=== PATIENT | male | born 1950 | race Caucasian/White ===

== ENCOUNTER → 2017-12-21 | Outpatient (CLI) | payer MEDICARE, SELFPAY | END | disposition home or self-care (01) | LOC: EN 07:43 | PROVIDERS: Family Provider Family Medicine; PCP Family Medicine; Visit Provider Surgery | DX: Z00.00 Encounter for general adult medical examination without abnormal findings (principal) ==

== ENCOUNTER → 2018-08-11 09:29 | Outpatient (CLI) | payer MEDICARE, SELFPAY ==
[2018-08-11 10:59] LABS: Anion Gap 11 (5-15); BUN 29 mg/dL (7-18); BUN/Creat Ratio 22.3 RATIO (10-20); Calcium,Total 8.6 mg/dL (8.5-10.1); Chloride 108 mmol/L (98-107); Cholesterol 142 mg/dL (200); EST Glomerular Filtration Rate 58 mL/min (>60); Est Glom Filt Rate - Afr Amer 71 mL/min (>60); Glucose 91 mg/dL (74-106); High Density Lipoprotein 56 mg/dL; Potassium 4.3 mmol/L (3.5-5.1); Sodium Level 143 mmol/L (136-145); Triglycerides 61 mg/dL; Very Low Density Lipoprotein 12 mg/dL (5-40)
== END ==
PROVIDERS: Family Provider Family Medicine; PCP Family Medicine; Referring Provider Family Medicine; Visit Provider Family Medicine
DX: Z13.220 Encounter for screening for lipoid disorders (principal); Z13.1 Encounter for screening for diabetes mellitus; Z12.5 Encounter for screening for malignant neoplasm of prostate
CPT/HCPCS: 36415; 80048; 80061; 84153; G0103

== ENCOUNTER → 2019-09-29 08:54 | Outpatient (CLI) | payer MEDICARE, SELFPAY ==
[2019-09-29 10:37] LABS: Anion Gap 5 (5-15); BUN 23 mg/dL (7-18); BUN/Creat Ratio 17.7 RATIO (10-20); Calcium,Total 8.2 mg/dL (8.5-10.1); Chloride 109 mmol/L (98-107); EST Glomerular Filtration Rate 58 mL/min (>60); Est Glom Filt Rate - Afr Amer 70 mL/min (>60); Glucose 97 mg/dL (74-106); Potassium 4.2 mmol/L (3.5-5.1); Sodium Level 141 mmol/L (136-145)
== END ==
PROVIDERS: PCP Family Medicine; Visit Provider Family Medicine
DX: I10 Essential (primary) hypertension (principal)
CPT/HCPCS: 36415; 80048

== ENCOUNTER 2020-11-17 15:46 | Inpatient (IN) | payer MEDICARE, SELFPAY ==
[2020-11-17] VITALS (7 sets, daily range): BP systolic 165–188; BP diastolic 98–109; PULSE 81–98; RESP 16–20; TEMP 36.4–36.8; O2SAT 95–98; BMI 32.0; BMI 31.4; BMI 31.5
--- NOTE | 2020-11-17 16:04 | CT_ITS ---
STUDY: CT ABDOMEN AND PELVIS WITH CONTRAST REASON FOR EXAM: Male, 70 years old. ABd painn -- IV PO Contrast RADIATION DOSAGE (If Supplied By Facility): CTDIvol = ( 17.51 ) mGy, DLP = ( 1224.71 ) mGycm TECHNIQUE: Transaxial images were obtained from the dome of the diaphragm to the symphysis pubis without oral contrast. Oral and amp;amp; IV Breeza Neutral and amp;amp; 100mL Isovue-370 was administered. Sagittal and coronal images were reconstructed. Individualized dose optimization techniques were used for this CT. COMPARISON: None. FINDINGS: Minimal dependent atelectasis in the right lower lobe. A 4.2 x 2.3 cm pericardial cyst to the right of the heart. Markedly distended gallbladder with intra and extrahepatic biliary dilatation. The possibility of a mass in the head of the pancreas cannot be excluded. No focal hepatic lesion on this single phase study. Multiple ill-defined masses in the spleen measuring up to 3.4 x 2.9 cm on image #30 axial series. Metastases are suspected. Calcified splenic granulomas. Unremarkable adrenals and bilateral kidneys. No CT evidence of acute appendicitis. Multiple fluid-filled and somewhat dilated small bowel loops down to the level of right lower abdomen where there is a small bowel loop containing fecaloid material. Bowel loops distal to this area are decompressed (image #97 axial series). Findings residual air in the colon. Findings compatible with partial small bowel obstruction. Distal colonic diverticulosis. No acute diverticulitis. No free air. Trace perisplenic ascites.. No adenopathy. Mild vascular calcification. Sections through the pelvis demonstrate an enlarged prostate gland. Grossly unremarkable urinary bladder. Fat-containing right inguinal hernia. Multilevel thoracolumbar spondylosis. Mild to moderate levoscoliosis of the lumbar spine. CT/Abdomen/Pelvis WITH Contrast IMPRESSION: Marked gallbladder distention with intra and extra hepatic biliary dilatation. Dedicated pancreatic MRI or CT scan is recommended to rule out the possibility of pancreatic adenocarcinoma in the head of the pancreas. Multiple ill-defined lesions in the spleen, highly suspicious for metastases. Trace perisplenic ascites. Partial small bowel obstruction with the transition point in the right lower abdomen. The underlying etiology is likely adhesions. Distal colonic diverticulosis. No acute diverticulitis. Electronically Signed: Jonathan Grimes MD at 18:28 EDT Tel , Service support ,
--- NOTE | 2020-11-17 16:04 | EKG12_ITS ---
Test Reason : Blood Pressure : / mmHG Vent. Rate : 090 BPM Atrial Rate : 090 BPM P-R Int : 176 ms QRS Dur : 082 ms QT Int : 380 ms P-R-T Axes : 055 -29 043 degrees QTc Int : 464 ms Normal sinus rhythm Normal ECG Confirmed by LASHAY LAWRENCE, NITZA ([id number]), research editor THIAGO PURVIS ([id number]) on 11/19/2020 8:38:06 AM Referred By: CAYLA Confirmed By:ROSS METZ MD
[2020-11-17] MEDS: 0.9% Normal Saline 1,000 ML 1000 ML IV (16:14)
[2020-11-17] MEDS: Morphine 4 MG/ML Syringe IV ×3 (16:14→21:38)
[2020-11-17] MEDS: Ondansetron 4 MG/2 ML Vial IV (16:15)
[2020-11-17 16:18] LABS: Absolute Lymphocyte Count 0.29 X10^3/uL (0.83-4.51); Absolute Neutrophil Count 16.1 X10^3/uL (2.0-7.7); Basophil# 0.02 X10^3/uL; Basophil% 0.1 % (0-1); Hematocrit 45.9 % (40-54); Lymphocyte # 0.29 X10^3/ul (0.83-4.51); Lymphocyte % 1.7 % (19-41); Mean Corp Hgb Conc 32.7 g/dL (32-36); Mean Corpuscular Volume 85.6 fL (80-94); Mean Platelet Vol. 10.2 fl (6.2-12.0); Monocyte# 0.33 X10^3/uL; NRBC Flagged by Analyzer 0 % (0-5); Neutrophil # 16.06 X10^3/uL (2.7-7.7); POSITIVE DIFFERENTIAL YES; Platelet Count 214 K/mm3 (150-450); RBC Distribution Width CV 14.2 % (11.6-14.6); RBC Distribution Width SD 44.3 fl (35.1-43.9); Red Blood Count 5.36 M/mm3 (4.6-6.2); White Blood Count 16.7 K/mm3 (4.4-11.0)
[2020-11-17 16:21] LABS: Differential Indicated SCAN CRITERIA MET
[2020-11-17 16:35] LABS: Differential Comment SCANNED
[2020-11-17 16:37] LABS: ALB/GLOB Ratio 0.8 RATIO (0.9-2.4); AST(SGOT) 17 U/L (15-37); Alanine Aminotransfer ALT/SGPT 20 U/L (16-61); Albumin, Serum 3.7 g/dL (3.2-5.0); Alkaline Phosphatase 134 U/L (45-117); Anion Gap 7 (5-15); BUN 22 mg/dL (7-18); BUN/Creat Ratio 17.2 RATIO (10-20); Calcium,Total 9.2 mg/dL (8.5-10.1); Chloride 101 mmol/L (98-107); Creatinine, Serum 1.28 mg/dL (0.70-1.30); EST Glomerular Filtration Rate 59 mL/min (>60); Est Glom Filt Rate - Afr Amer 71 mL/min (>60); Estimated Creatinine Clearance 58.94 ml/min; Globulin 4.7 g/dL (2.2-4.2); Glucose 161 mg/dL (74-106); Lipase 111 U/L (73-393); Potassium 3.8 mmol/L (3.5-5.1); Protein, Total 8.4 g/dL (6.4-8.2); Sodium Level 135 mmol/L (136-145)
--- NOTE | 2020-11-17 17:38 | ED.DCSUM_ITS ---
- ER Visit Summary Date of Service: 11/17/20 Chief Complaint: Abdominal pain History of Present Illness: The patient is a [address] Baires. He reports his abdominal pain began yesterday. Is gradually gotten worse. It is a cramping pain that is 8 out of 10 at worst and 3-10 currently. Is worsened by movement. It is Minimal relief with remaining still. Is taken antacids without relief. Reports has been nausea and vomited 3 times. No blood in his emesis. His last bowel was yesterday. He reports he is not passing flatus today. He denies any dysuria or frequency. Physical Examination: Vitals: Stable. Afebrile. General: Well-nourished and well-developed. Head: Normocephalic atraumatic. Neck: Supple, no lymphadenopathy. No JVD. Nontender. Cardiovascular: Regular rate and rhythm. No murmurs. Respiratory: No respiratory distress. Clear to auscultation bilaterally. Abdominal: Soft, mild epigastric and moderate suprapubic and left lower quadrant tenderness palpation. Abdomen is distended with hypoactive bowel sounds. No guarding, rebound, or peritoneal signs. Back: Nontender. Extremities: Nontender, no edema. Skin: Normal color, no rash. Neurologic: Alert and oriented ?3. Cranial nerves II through XII are intact. Normal strength and sensation. Psych: Normal affect. Test Results: EKG is sinus at [address] changes. Troponin is negative. LFTs show total protein of 8.4 and globin of 4.7. Alk phos is 134. Lipase is 111. Chem-7 shows sodium 135, glucose 161, BUN 22. CBC shows a white count of 16.7 with 96 segmented leach and 2 lymphocytes. COVID-19 is negative. Clinical Impression(s) from Imaging Studies Abdomen/Pelvis CT 11/17/20 16:04 IMPRESSION: Marked gallbladder distention with intra and extra hepatic biliary dilatation. Dedicated pancreatic MRI or CT scan is recommended to rule out the possibility of pancreatic adenocarcinoma in the head of the pancreas. Multiple ill-defined lesions in the spleen, highly suspicious for metastases. Trace perisplenic ascites. Partial small bowel obstruction with the transition point in the right lower abdomen. The underlying etiology is likely adhesions. Distal colonic diverticulosis. No acute diverticulitis. Electronically Signed: Jonathan Grimes MD at 18:28 EDT Tel , Service support , Emergency Department Course and Treatment: Patient was given morphine and Zofran IV. He is resting more comfortably. I had a discussion with patient about the possibility of an NG tube. His pain is improved. His nausea is resolved. He refused an NG tube. Treatment Plan: The patient was discussed with Dr. Doherty and insert Dr. Lisa. He will be admitted to the hospital with a plan to do a pancreatic MRI tomorrow. Disposition: Admitted in improved condition. Impression: 1. Partial small bowel obstruction. 2. Possible pancreatic mass. This note was generated with [employer] dictation software. It may contain incorrect words, spelling, and punctuation that were not noted in review of the chart prior to signing ED Disposition - Plan for ED Patient: Referrals: Lonnie De Anda MD [Primary Care Provider] -
[2020-11-17 18:24] LABS: Bacteria 0 SEEN /hpf (None Seen); Mucous, Urine 0 SEEN /hpf (<or=2+); Red Blood Cells-Urine 0 SEEN /hpf (0-5); Squamous Epithelial Cells - UA 0 SEEN /hpf (0-5); White Blood Cells 0 SEEN /hpf (0-5)
[2020-11-17 18:25] LABS: Color, Urine Straw (Yellow); Glucose, Dipstick Normal (Normal); Ketone-Dipstick 5 mg/dl (Negative); Leukocyte Esterase-Dipstick Negative /ul (Negative); Nitrite-Dipstick Negative (Negative); Occult Blood-Urine Negative /ul (Negative); Protein-Dipstick 15 mg/dl (Negative); Specific Gravity, Urine 1.005 (1.002-1.030); Urine Bilirubin Dipstick Negative (Negative); Urine Clarity Clear (Clear); Urine Urobilinogen Normal (Normal)
--- NOTE | 2020-11-17 19:26 | PCM.HP.STD ---
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 The pain radiates to his bilateral flanks. The pain worsens with eating. The pain improves with not eating. Originally his pain was 8 on a scale of 1-10 but with taking antacids; and Pepto-Bismol his pain reduced to a 3 by the time he got to the emergency department. Also at the emergency department morphine helped with his pain. Associated with his symptoms is nausea and vomiting. Last time his bowels moved was on the morning of the day of presentation. At the time of examination patient was not passing flatus. Past Medical History Medical History: Medical History (Last Reviewed 11/17/20 @ 20:[address] Smith Cook MD) Essential tremor G25.0 Allergies Penicillins [PCN] Allergy (Verified 11/17/20 15:47) Itching Home Medications: Ambulatory Orders Medication Instructions Recorded Topiramate [Topamax] 50 mg PO PRN PRN 04/18/15 Meloxicam [Mobic] 7.5 mg PO DAILY 06/12/16 Primidone [Mysoline] 100 mg PO DAILY 06/12/16 Cialis 11/17/20 Surgical History: herniorrhaphy, total knee arthroplasty, - - Bilateral tibia fibula fracture repair Smoking Status: Former smoker - *Family History Maternal History Items: - - Patient mother is alive and is 93-year-old. Patient's mother had gallbladder surgery; hysterectomy and lens implant. Paternal History Items: - - Patient does not know paternal medical history Review of Systems Constitutional: Denies: Chills, Fever, Weight Change HEENT: Denies: Head Aches, Sinus Congestion, Sinus Drainage Cardiovascular: Denies: Chest Pain, Palpitations Respiratory: Denies: Cough, Shortness of breath at rest, Sputum production Gastrointestinal: Reports: Abdominal Pain, Nausea, Vomiting Genitourinary: Denies: Dysuria Musculoskeletal: Denies: Joint Pain, Joint Tenderness Skin: Denies: Rash, Wounds Neurological: Denies: Numbness, Tingling, Focal weakness Psychiatric: Denies: Anxiety, Depression, Homicidal Ideations, Suicidal Ideations Hematologic/ Lymphatic: Denies: Easy Bruising, Easy Bleeding VTE Information - Inpt Only VTE Present on Admission: No VTE Mechan Device Prophylaxis: SCD's VTE Pharm Prophylaxis ordered?: No Patient Problems: Active and Suspected Problems (Last Reviewed 11/17/20 @ 20:[address] Smith Cook MD) SBO (small bowel obstruction) (Acute) Pancreatic mass (Acute) - Physical Exam Vitals/I&O's: Vital Signs Temp Pulse Resp BP Pulse Ox 97.6 F L 89 16 186/104 H 98 11/17/20 15:47 11/17/20 18:47 11/17/20 18:47 11/17/20 18:47 11/17/20 17:46 Oxygen Delivery Method Room Air Weight: 107.1 kg Body Mass Index (BMI) 32.0 Intake and Output for Last 24 Hours 11/15/20 11/16/20 11/17/20 23:59 23:59 23:59 Intake Total 1000 / 1000 Balance 1000 / 1000 General: Alert, Oriented x3, Cooperative HEENT: Atraumatic, PERRLA, EOMI, Normocephalic Neck: Supple, No JVD, Negative Carotid Bruits Lungs: Clear to auscultation, Normal air movement Cardiovascular: Regular rate, Normal S1, Normal S2, No murmurs Abdomen: Bowel Sounds Present, Soft, Tender - Mildly tender at lower abdomen. Extremities: No edema, Capillary Refill Less than 3 Seconds Skin: No rashes, No breakdown Musculoskeletal: No Tenderness to Palpation of Joints or Extremities Neurological: Cranial nerves II-XII grossly intact Psych/Mental Status: Normal Affect, Appropriate Microbiology Past 72 Hours 11/17/20 17:18 Nasal Secretion SARS-CoV-2 Antigen (Rapid) - Final Laboratory Results 11/17/20 16:10: WBC 16.7 H, RBC 5.36, Hgb 15.0, Hct 45.9, MCV 85.6, MCH 28.0, MCHC 32.7, RDW Std Deviation 44.3 H, RDW Coeff of Bettina 14.2, Plt Count 214, MPV 10.2, Immature Gran % (Auto) 0.200, Neut % (Auto) 96.0 H, Lymph % (Auto) 1.7 L, Vance % (Auto) 2.0, Eos % (Auto) 0.0, Baso % (Auto) 0.1, Absolute Neuts (auto) 16.1 H, Absolute Lymphs (auto) 0.29 L, Nucleated RBC % 0, Differential Comment SCANNED 11/17/20 16:10: Sodium 135 L, Potassium 3.8, Chloride 101, Carbon Dioxide 27.0, Anion Gap 7, BUN 22 H, Creatinine 1.28, Estim Creat Clear Calc 58.94, Est GFR (MDRD) Af Amer 71, Est GFR (MDRD) Non-Af 59 L, BUN/Creatinine Ratio 17.2, Glucose 161 H, Calcium 9.2, Total Bilirubin 0.90, AST 17, ALT 20, Alkaline Phosphatase 134 H, Troponin I < 0.015, Total Protein 8.4 H, Albumin 3.7, Globulin 4.7 H, Albumin/Globulin Ratio 0.8 L, Lipase 111 11/17/20 18:20: Urine Color Straw, Urine Clarity Clear, Urine pH 7.0, Ur Specific [place] 1.005, Urine Protein 15 H, Urine Glucose (UA) Normal, Urine Ketones 5 H, Urine Occult Blood Negative, Urine Nitrite Negative, Urine Bilirubin Negative, Urine Urobilinogen Normal, Ur Leukocyte Esterase Negative, Urine RBC 0 SEEN, Urine WBC 0 SEEN, Ur Squamous Epith Cells 0 SEEN, Urine Bacteria 0 SEEN, Urine Mucus 0 SEEN Assessment/Plan All Active Problems (Last Reviewed 11/17/20 @ 20:[address] 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 Partial small bowel obstruction Abdomen pelvis CT showed partial small bowel obstruction with transition point in the right lower abdomen. Will keep patient n.p.o. Supportive treatment with IV fluids; as needed morphine; and as needed antiemetics. General surgery consult Trend CBC and BMP Pancreatic mass Radiologist impression of abdomen and pelvis CT: Abdomen and pelvis CT with marked gallbladder distention with intra and extra hepatic biliary dilatation. Multiple ill-defined lesions in the spleen, highly suspicion for mental status. Radiologist recommended dedicated pancreatic MRI or CT scan. Per emergent department doctor general surgery recommended MRI. Actual abdomen and pelvic CT was independently interpreted. I agree with radiologist interpretation. Case discussed general surgery. Dedicated pancreatic MRI ordered. Essential tremors On primidone and Topamax. Reportedly he does not take these medications. Essential tremors however affect his writing. In lieu of taking these medications he makes people write for him. Hold primidone and topiramate. DVT prophylaxis SCD. Patient is not a candidate of chemical chemoprophylaxis at this time. Inpatient E&M: [id number] Init Hosp L3
[2020-11-17] MEDS: Famotidine 200 MG/20 ML MDV 20 MG in 0.9% Normal Saline (Pres. free 8 ML 300 MG IV (22:13)
[2020-11-17] MEDS: hydrALAZINE 20 MG/ML Vial 5 MG IV (22:17)
[2020-11-18] VITALS (9 sets, daily range): BP systolic 146–185; BP diastolic 86–96; PULSE 67–76; RESP 16–18; TEMP 36.6–36.8; O2SAT 94–96
[2020-11-18] MEDS: Ketorolac 15 MG/ML Vial IV (00:41)
[2020-11-18] MEDS: 0.9% Normal Saline 1,000 ML 75 ML IV ×2 (00:43→14:31)
[2020-11-18] MEDS: Ondansetron 4 MG/2 ML Vial IV ×3 (00:46→17:30)
[2020-11-18] MEDS: Morphine 4 MG/ML Syringe IV ×6 (04:44→20:36)
--- NOTE | 2020-11-18 06:51 | CON.PCM_ITS ---
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 The pain radiates to his bilateral flanks. The pain worsens with eating. The pain improves with not eating. Originally his pain was 8 on a scale of 1-10 but with taking antacids; and Pepto-Bismol his pain reduced to a 3 by the time he got to the emergency department. Also at the emergency department morphine helped with his pain. Associated with his symptoms is nausea and vomiting. Last time his bowels moved was on the morning of the day of presentation. At the time of examination patient was not passing flatus. Past Medical History Medical History: Medical History (Last Reviewed 11/18/20 @ 06:[address] Adolfo Doherty MD) Essential tremor G25.0 Allergies Penicillins [PCN] Allergy (Verified 11/17/20 15:47) Itching Home Medications: Ambulatory Orders Medication Instructions Recorded Topiramate [Topamax] 50 mg PO PRN PRN 04/18/15 Meloxicam [Mobic] 7.5 mg PO DAILY PRN 06/12/16 Primidone [Mysoline] 100 mg PO DAILY PRN 06/12/16 Cialis 25 mg PO 11/17/20 Surgical History: herniorrhaphy, total knee arthroplasty, - - Bilateral tibia fibula fracture repair Smoking Status: Former smoker Tobacco Use: Cigarettes - *Family History Maternal History Items: - - Patient mother is alive and is 93-year-old. Patient's mother had gallbladder surgery; hysterectomy and lens implant. Paternal History Items: - - Patient does not know paternal medical history Review of Systems Constitutional: Reports: Anorexia Cardiovascular: Denies: Chest Pain, Chest Pressure, Chest Tightness, Palpitations Respiratory: Denies: Cough, Hemoptysis, Shortness of breath at rest, Shortness of breath upon exertion, Wheezing Gastrointestinal: Reports: Abdominal Pain Patient Problems: Active and Suspected Problems (Last Reviewed 11/17/20 @ 20:[address] Smith Cook MD) SBO (small bowel obstruction) (Acute) Pancreatic mass (Acute) - Physical Exam Vitals/I&O's: Vital Signs Temp Pulse Resp BP Pulse Ox 98.2 F 76 16 146/87 H 95 11/18/20 02:49 11/18/20 02:49 11/18/20 02:49 11/18/20 02:49 11/18/20 02:49 Oxygen Delivery Method Room Air Weight: 231 lb 14.821 oz Body Mass Index (BMI) 31.4 Intake and Output for Last 24 Hours 11/16/20 11/17/20 11/18/20 23:59 23:59 23:59 Intake Total 1010 / 1010 Balance 1010 / 1010 General: Alert, Oriented x3 HEENT: Normocephalic - No scleral icterus is identified Cardiovascular: Regular rate, Regular Rhythm, No murmurs Abdomen: Soft - Minimal tenderness to palpation. Few bowel sounds are heard. Microbiology Past 72 Hours 11/17/20 17:18 Nasal Secretion SARS-CoV-2 Antigen (Rapid) - Final Laboratory Results 11/17/20 16:10: WBC 16.7 H, RBC 5.36, Hgb 15.0, Hct 45.9, MCV 85.6, MCH 28.0, MCHC 32.7, RDW Std Deviation 44.3 H, RDW Coeff of Bettina 14.2, Plt Count 214, MPV 10.2, Immature Gran % (Auto) 0.200, Neut % (Auto) 96.0 H, Lymph % (Auto) 1.7 L, [place] % (Auto) 2.0, Eos % (Auto) 0.0, Baso % (Auto) 0.1, Absolute Neuts (auto) 16.1 H, Absolute Lymphs (auto) 0.29 L, Nucleated RBC % 0, Differential Comment SCANNED 11/17/20 16:10: Sodium 135 L, Potassium 3.8, Chloride 101, Carbon Dioxide 27.0, Anion Gap 7, BUN 22 H, Creatinine 1.28, Estim Creat Clear Calc 58.94, Est GFR (MDRD) Af Amer 71, Est GFR (MDRD) Non-Af 59 L, BUN/Creatinine Ratio 17.2, Glucose 161 H, Calcium 9.2, Total Bilirubin 0.90, AST 17, ALT 20, Alkaline Phosphatase 134 H, Troponin I < 0.015, Total Protein 8.4 H, Albumin 3.7, Globul in 4.7 H, Albumin/Globulin Ratio 0.8 L, Lipase 111 11/17/20 18:20: Urine Color Straw, Urine Clarity Clear, Urine pH 7.0, Ur Specific [place] 1.005, Urine Protein 15 H, Urine Glucose (UA) Normal, Urine Ketones 5 H, Urine Occult Blood Negative, Urine Nitrite Negative, Urine Bilirubin Negative, Urine Urobilinogen Normal, Ur Leukocyte Esterase Negative, Urine RBC 0 SEEN, Urine WBC 0 SEEN, Ur Squamous Epith Cells 0 SEEN, Urine Bacteria 0 SEEN, Urine Mucus 0 SEEN Current Medications Hydralazine HCl (Hydralazine 20 Mg/Ml Vial) 5 mg IV Q4H PRN PRN PRN Reason: SBP > 160 Last Admin: 11/17/20 22:17 Dose: 5 mg Documented by: Sodium Chloride () 1,000 mls @ 75 mls/hr IV .[id number] CRISTIANE Last Admin: 11/18/20 00:43 Dose: 75 mls/hr Documented by: Famotidine 20 mg/ Sodium (Chloride) 10 mls @ 300 mls/hr IV Q12 CRISTIANE Last Infusion: 11/17/20 22:15 Dose: Infused Documented by: Morphine Sulfate (Morphine 4 Mg/Ml Syringe) 4 mg IV Q3H PRN PRN PRN Reason: Pain Score 6-10 Last Admin: 11/18/20 04:44 Dose: 4 mg Documented by: Ondansetron HCl (Ondansetron 4 Mg/2 Ml Vial) 4 mg IV Q8H PRN PRN PRN Reason: NAUSEA/VOMITING Last Admin: 11/18/20 00:46 Dose: 4 mg Documented by: Sodium Chloride (0.9% Saline Lock 10 Ml Syringe) 10 - 40 ml IV UD PRN PRN Reason: SALINE FLUSH Assessment/Plan All Active Problems (Last Reviewed 11/17/20 @ 20:[address] Smith Cook MD) SBO (small bowel obstruction) (Acute) Pancreatic mass (Acute) Patient will be getting an MRI of the pancreas today. I am going to consult Dr. Nino to get his opinion on the need for a ERCP. He does not have a surgical abdomen at this time and I do not think he needs an operation.
[2020-11-18 07:04] LABS: Absolute Lymphocyte Count 1.05 X10^3/uL (0.83-4.51); Absolute Neutrophil Count 10.1 X10^3/uL (2.0-7.7); Basophil# 0.03 X10^3/uL; Basophil% 0.2 % (0-1); Eosinophil# 0.05 X10^3/uL; Eosinophils% 0.4 % (0-5); Hematocrit 41.3 % (40-54); Hemoglobin 13.1 g/dL (13.0-16.5); Lymphocyte # 1.05 X10^3/ul (0.83-4.51); Lymphocyte % 8.6 % (19-41); Mean Corp Hgb Conc 31.7 g/dL (32-36); Mean Corpuscular Hgb 28.1 pg (27.0-32.0); Mean Corpuscular Volume 88.6 fL (80-94); Mean Platelet Vol. 10.3 fl (6.2-12.0); Monocyte# 0.88 X10^3/uL; Monocyte% 7.2 % (0-10); NRBC Flagged by Analyzer 0 % (0-5); Neutrophil # 10.12 X10^3/uL (2.7-7.7); Neutrophil % 83.3 % (47-70); Platelet Count 168 K/mm3 (150-450); RBC Distribution Width CV 14.3 % (11.6-14.6); RBC Distribution Width SD 45.8 fl (35.1-43.9); Red Blood Count 4.66 M/mm3 (4.6-6.2); White Blood Count 12.2 K/mm3 (4.4-11.0)
[2020-11-18] MEDS: 0.9% Saline Lock 10 ML Syringe IV ×6 (07:50→20:36)
[2020-11-18 07:51] LABS: ALB/GLOB Ratio 0.8 RATIO (0.9-2.4); AST(SGOT) 41 U/L (15-37); Alanine Aminotransfer ALT/SGPT 32 U/L (16-61); Albumin, Serum 3.1 g/dL (3.2-5.0); Alkaline Phosphatase 111 U/L (45-117); Anion Gap 3 (5-15); BUN 22 mg/dL (7-18); BUN/Creat Ratio 20.2 RATIO (10-20); Calcium,Total 8.7 mg/dL (8.5-10.1); Chloride 105 mmol/L (98-107); Creatinine, Serum 1.09 mg/dL (0.70-1.30); EST Glomerular Filtration Rate 71 mL/min (>60); Est Glom Filt Rate - Afr Amer 86 mL/min (>60); Estimated Creatinine Clearance 69.22 ml/min; Globulin 3.7 g/dL (2.2-4.2); Glucose 98 mg/dL (74-106); Potassium 4.6 mmol/L (3.5-5.1); Protein, Total 6.8 g/dL (6.4-8.2); Sodium Level 137 mmol/L (136-145)
--- NOTE | 2020-11-18 08:00 | MRI_ITS ---
STUDY: MRI ABDOMEN WITH AND WITHOUT CONTRAST REASON FOR EXAM: Male, 70 years old. PANCREATIC CANCER -- Dedicated pancreatic MRI for pancreatic adenoca TECHNIQUE: Standardized fat and water weighted pulse sequences were obtained in all 3 orthogonal planes post contrast administration. IV Yes YES was administered for the contrast portion of the examination. COMPARISON: None. FINDINGS: The visualized lung bases are unremarkable. 3 cm cyst in the right epicardial fat pad. Normal liver. There are multiple gallstones. Gallbladder hydrops with a cross-sectional diameter 7 cm. Mild intrahepatic biliary ductal dilatation particularly in the left lobe. Multiple peripherally enhancing masses of the spleen which fill-in over time worrisome for metastatic disease. The largest lesion measures 3.5 cm in the superior aspect of the spleen. Some free fluid surrounding the spleen. Normal pancreas. Normal bilateral adrenal glands. Normal right kidney. Normal left kidney. There is a small hiatal hernia. Diverticulum of the second portion the duodenum. Normal colon. There is non-visualization of the appendix. Normal abdominal aorta. Normal inferior vena cava. Normal retroperitoneum. Normal abdominal wall. Normal osseous structures. MRI/MRI Abd WITH and W/O Contrast IMPRESSION: 1. Cholelithiasis with gallbladder hydrops. 2. Mild intrahepatic biliary ductal dilatation particularly in the left lobe. ERCP may be useful. 3. No MR evidence of pancreatic mass. 4. Multiple peripherally enhancing lesions the spleen worrisome for metastatic disease. 5. Diverticulum of second portion the duodenum. Electronically Signed: Vinnie Washington MD at 12:55 EDT Tel , Service support ,
--- NOTE | 2020-11-18 08:35 | PN_ITS ---
Patient Problems: Active and Suspected Problems (Last Reviewed 11/18/20 @ 06:[address] Adolfo Doherty MD) SBO (small bowel obstruction) (Acute) Pancreatic mass (Acute) Reason for Visit: Abdominal pain Small bowel obstruction Subjective: Patient is a 70-year-old gentleman admitted with abdominal cramping imaging studies demonstrated small bowel obstruction. Patient was also found to have Marked gallbladder distention with intra and extra hepatic biliary dilatation in addition to Multiple ill-defined lesions in the spleen, highly suspicious for metastases. Admitted to regular nursing floor with consultation placed to general surgery Objective: GENERAL: cooperative HEENT: Atraumatic; EYES; Anicteric, Normal Conjunctiva NECK; supple, normal thyroid, RESPIRATORY: Diminished to auscultation CARDIOVASCULAR: Regular S1 S2, GI: soft, bowel sounds not appreciated : No Renal angle tenderness; EXTREMITIES: No edema, no clubbing, MUSCULOSKELETAL: no muscle waisting NEURO: Awake; no lateralizing signs. SKIN: No Rash PSYCH; Flat affect Vitals/I&O's: Vital Signs Temp Pulse Resp BP Pulse Ox 97.9 F 73 18 166/96 H 94 11/18/20 07:54 11/18/20 07:54 11/18/20 07:54 11/18/20 07:54 11/18/20 07:54 Oxygen Delivery Method Room Air Weight: 105.2 kg Body Mass Index (BMI) 31.4 Intake and Output for Last 24 Hours 11/16/20 11/17/20 11/18/20 23:59 23:59 23:59 Intake Total 1010 / 1010 Balance 1010 / 1010 Microbiology Past 72 Hours 11/17/20 17:18 Nasal Secretion SARS-CoV-2 Antigen (Rapid) - Final Laboratory Results 11/17/20 16:10: WBC 16.7 H, RBC 5.36, Hgb 15.0, Hct 45.9, MCV 85.6, MCH 28.0, MCHC 32.7, RDW Std Deviation 44.3 H, RDW Coeff of Bettina 14.2, Plt Count 214, MPV 10.2, Immature Gran % (Auto) 0.200, Neut % (Auto) 96.0 H, Lymph % (Auto) 1.7 L, [place] % (Auto) 2.0, Eos % (Auto) 0.0, Baso % (Auto) 0.1, Absolute Neuts (auto) 16.1 H, Absolute Lymphs (auto) 0.29 L, Nucleated RBC % 0, Differential Comment SCANNED 11/17/20 16:10: Sodium 135 L, Potassium 3.8, Chloride 101, Carbon Dioxide 27.0, Anion Gap 7, BUN 22 H, Creatinine 1.28, Estim Creat Clear Calc 58.94, Est GFR (MDRD) Af Amer 71, Est GFR (MDRD) Non-Af 59 L, BUN/Creatinine Ratio 17.2, Gluc ose 161 H, Calcium 9.2, Total Bilirubin 0.90, AST 17, ALT 20, Alkaline Phosphatase 134 H, Troponin I < 0.015, Total Protein 8.4 H, Albumin 3.7, Globulin 4.7 H, Albumin/Globulin Ratio 0.8 L, Lipase 111 11/17/20 18:20: Urine Color Straw, Urine Clarity Clear, Urine pH 7.0, Ur Specific [place] 1.005, Urine Protein 15 H, Urine Glucose (UA) Normal, Urine Ketones 5 H, Urine Occult Blood Negative, Urine Nitrite Negative, Urine Bilirubin Negative, Urine Urobilinogen Normal, Ur Leukocyte Esterase Negative, Urine RBC 0 SEEN, Urine WBC 0 SEEN, Ur Squamous Epith Cells 0 SEEN, Urine Bacteria 0 SEEN, Urine Mucus 0 SEEN 11/18/20 06:35: WBC 12.2 H, RBC 4.66, Hgb 13.1, Hct 41.3, MCV 88.6, MCH 28.1, MCHC 31.7 L, RDW Std Deviation 45.8 H, RDW Coeff of Bettina 14.3, Plt Count 168, MPV 10.3, Immature Gran % (Auto) 0.300, Neut % (Auto) 83.3 H, Lymph % (Auto) 8.6 L, [place] % (Auto) 7.2, Eos % (Auto) 0.4, Baso % (Auto) 0.2, Absolute Neuts (auto) 10.1 H, Absolute Lymphs (auto) 1.05, Nucleated RBC % 0 11/18/20 06:35: Sodium 137, Potassium 4.6, Chloride 105, Carbon Dioxide 29.0, Anion Gap 3 L, BUN 22 H, Creatinine 1.09, Estim Creat Clear Calc 69.22, Est GFR (MDRD) Af Amer 86, Est GFR (MDRD) Non-Af 71, BUN/Creatinine Ratio 20.2 H, Glucose 98, Calcium 8.7, Total Bilirubin 0.90, AST 41 H, ALT 32, Alkaline Phosphatase 111, Total Protein 6.8, Albumin 3.1 L, Globulin 3.7, Albumin/Globulin Ratio 0.8 L Current Medications Hydralazine HCl (Hydralazine 20 Mg/Ml Vial) 5 mg IV Q4H PRN PRN PRN Reason: SBP > 160 Last Admin: 11/17/20 22:17 Dose: 5 mg Documented by: Sodium Chloride () 1,000 mls @ 75 mls/hr IV .[id number] [facility] Last Admin: 11/18/20 00:43 Dose: 75 mls/hr Documented by: Famotidine 20 mg/ Sodium (Chloride) 10 mls @ 300 mls/hr IV Q12 [facility] Last Infusion: 11/17/20 22:15 Dose: Infused Documented by: Morphine Sulfate (Morphine 4 Mg/Ml Syringe) 4 mg IV Q3H PRN PRN PRN Reason: Pain Score 6-10 Last Admin: 11/18/20 08:02 Dose: 4 mg Documented by: Ondansetron HCl (Ondansetron 4 Mg/2 Ml Vial) 4 mg IV Q8H PRN PRN PRN Reason: NAUSEA/VOMITING Last Admin: 11/18/20 07:50 Dose: 4 mg Documented by: Sodium Chloride (0.9% Saline Lock 10 Ml Syringe) 10 - 40 ml IV UD PRN PRN Reason: SALINE FLUSH Last Admin: 11/18/20 08:03 Dose: 10 ml Documented by: STROKE Vital Signs/Narrative: Vital Signs Temp Pulse Resp BP Pulse Ox 11/18/20 07:54 97.9 F 73 18 166/96 H 94 11/18/20 07:02 96 Medical Necessity - Tobacco Use Smoking Status: Former smoker Tobacco Use: Cigarettes Assessment/Plan All Active Problems (Last Reviewed 11/18/20 @ 06:[address] Adolfo Doherty MD) SBO (small bowel obstruction) (Acute) Pancreatic mass (Acute) Patient is a 70-year-old gentleman admitted with abdominal cramping imaging studies demonstrated small bowel obstruction. Patient was also found to have Marked gallbladder distention with intra and extra hepatic biliary dilatation in addition to Multiple ill-defined lesions in the spleen, highly suspicious for metastases. Admitted to regular nursing floor with consultation placed to general surgery 1. Partial small bowel obstruction ?Partial small bowel obstruction with the transition point in the right lower abdomen. The underlying etiology is likely adhesions. Admitted to regular nursing floor managed with bowel rest IV fluids pain meds as well as antinausea medications with consultation placed to general surgery 2. Biliary dilatation ?CT of the abdomen obtained demonstrated Marked gallbladder distention with intra and extra hepatic biliary dilatation. Patient was also found to have Multiple ill-defined lesions in the spleen, highly suspicious for metastases. Pancreatic MRI ordered to rule out the possibility of pancreatic adenocarcinoma in the head of the pancreas. 3. Essential tremors ?On primidone and topiramate at home 4. DVT prophylaxis - On enoxaparin Clinical Impression(s) from Imaging Studies Abdomen/Pelvis CT 11/17/20 16:04 IMPRESSION: Marked gallbladder distention with intra and extra hepatic biliary dilatation. Dedicated pancreatic MRI or CT scan is recommended to rule out the possibility of pancreatic adenocarcinoma in the head of the pancreas. Multiple ill-defined lesions in the spleen, highly suspicious for metastases. Trace perisplenic ascites. Partial small bowel obstruction with the transition point in the right lower abdomen. The underlying etiology is likely adhesions. Distal colonic diverticulosis. No acute diverticulitis. Electronically Signed: Jonathan Grimes MD at 18:28 EDT Tel , Service support , Inpatient E&M: [id number] [facility] L2
--- NOTE | 2020-11-18 08:39 | CON.PCM_ITS ---
Problem List (1) SBO (small bowel obstruction) Status: Acute (2) Pancreatic mass Status: Acute Reason for Consult Date of Consultation: 11/18/20 Reason for Consultation: Abdominal pain. Pancreatic mass. Possible ERCP needed. History of Present Illness: The patient is a 70 year old M who presented to the ED with waxing and waning abdominal pain. He stated he ate 5 hand fulls of almonds and noted development of abdominal pain later that night. He states this was on Wednesday night. He states each time he would eat almonds he would have increased abdominal discomfort. He notes eating TUMs and Pepto Bismol to help relief the abdominal pain. He had no relief with this medication. He noted the pain started int he epigastric/midline of the abdomen and comes and goes. He notes the pain will intensify to a 10 out of 10 at times. He continue to note belching. He notes positive nausea, vomiting 4 times on Wednesday. He notes normal bowel movements. He denies passing much flatus. He states this is normal. He typically waits until he goes to bed before passing flatus. He notes he has increased his water intake lately. He denies pain in the right upper quadrant specifically. He denies unintentional weight loss. Patient denies cardiac and pulmonary history. He does take medications for blood pressure. 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 Patient's CT scan of the ab/pel demonstrated the following: IMPRESSION: Marked gallbladder distention with intra and extra hepatic biliary dilatation. Dedicated pancreatic MRI or CT scan is recommended to rule out the possibility of pancreatic adenocarcinoma in the head of the pancreas. Multiple ill-defined lesions in the spleen, highly suspicious for metastases. Trace perisplenic ascites. Partial small bowel obstruction with the transition point in the right lower abdomen. The underlying etiology is likely adhesions. Distal colonic diverticulosis. No acute diverticulitis. Past Medical History Medical History: Medical History (Last Reviewed 11/18/20 @ 06:[address] Adolfo Doherty MD) Essential tremor G25.0 Allergies Penicillins [PCN] Allergy (Verified 11/17/20 15:47) Itching Home Medications: Ambulatory Orders Medication Instructions Recorded Topiramate [Topamax] 50 mg PO PRN PRN 04/18/15 Meloxicam [Mobic] 7.5 mg PO DAILY PRN 06/12/16 Primidone [Mysoline] 100 mg PO DAILY PRN 06/12/16 Cialis 25 mg PO 11/17/20 Surgical History: herniorrhaphy, total knee arthroplasty, - - Bilateral tibia fibula fracture repair Smoking Status: Former smoker Tobacco Use: Cigarettes - *Family History Maternal History Items: - - Patient mother is alive and is 93-year-old. Patient's mother had gallbladder surgery; hysterectomy and lens implant. Paternal History Items: - - Patient does not know paternal medical history Review of Systems Constitutional: Denies: Chills, Fever, Weight Change HEENT: Denies: Head Aches, Sinus Congestion, Sinus Drainage Cardiovascular: Denies: Chest Pain, Palpitations Respiratory: Denies: Cough, Shortness of breath at rest, Sputum production Gastrointestinal: Reports: Abdominal Pain, Nausea, Vomiting. Denies: Constipation, Diarrhea, Melena Genitourinary: Denies: Dysuria Musculoskeletal: Denies: Joint Pain, Joint Tenderness Skin: Denies: Rash, Wounds Neurological: Denies: Numbness, Tingling, Focal weakness Psychiatric: Denies: Anxiety, Depression, Homicidal Ideations, Suicidal I deations Hematologic/ Lymphatic: Denies: Easy Bruising, Easy Bleeding Patient Problems: Active and Suspected Problems (Last Reviewed 11/18/20 @ 06:[address] Adolfo Doherty MD) SBO (small bowel obstruction) (Acute) Pancreatic mass (Acute) - Physical Exam Vitals/I&O's: Vital Signs Temp Pulse Resp BP Pulse Ox 97.9 F 73 18 166/96 H 94 11/18/20 07:54 11/18/20 07:54 11/18/20 07:54 11/18/20 07:54 11/18/20 07:54 Oxygen Delivery Method Room Air Weight: 231 lb 14.821 oz Body Mass Index (BMI) 31.4 Intake and Output for Last 24 Hours 11/16/20 11/17/20 11/18/20 23:59 23:59 23:59 Intake Total 1010 / 1010 Balance 1010 / 1010 General: Alert, Oriented x3, Cooperative HEENT: Atraumatic, PERRLA, EOMI, Normocephalic Neck: Supple, No JVD, Negative Carotid Bruits Lungs: Clear to auscultation, Normal air movement Cardiovascular: Regular rate, No murmurs Abdomen: Hypoactive Bowel Sounds, Distended, Tender - left upper quadrant Extremities: No edema, Capillary Refill Less than 3 Seconds Skin: No rashes, No breakdown Musculoskeletal: No Tenderness to Palpation of Joints or Extremities Neurological: Cranial nerves II-XII grossly intact Psych/Mental Status: Normal Affect, Appropriate Microbiology Past 72 Hours 11/17/20 17:18 Nasal Secretion SARS-CoV-2 Antigen (Rapid) - Final Laboratory Results 11/17/20 16:10: WBC 16.7 H, RBC 5.36, Hgb 15.0, Hct 45.9, MCV 85.6, MCH 28.0, MCHC 32.7, RDW Std Deviation 44.3 H, RDW Coeff of Bettina 14.2, Plt Count 214, MPV 10.2, Immature Gran % (Auto) 0.200, Neut % (Auto) 96.0 H, Lymph % (Auto) 1.7 L, [place] % (Auto) 2.0, Eos % (Auto) 0.0, Baso % (Auto) 0.1, Absolute Neuts (auto) 16.1 H, Absolute Lymphs (auto) 0.29 L, Nucleated RBC % 0, Differential Comment SCANNED 11/17/20 16:10: Sodium 135 L, Potassium 3.8, Chloride 101, Carbon Dioxide 27.0, Anion Gap 7, BUN 22 H, Creatinine 1.28, Estim Creat Clear Calc 58.94, Est GFR (MDRD) Af Amer 71, Est GFR (MDRD) Non-Af 59 L, BUN/Creatinine Ratio 17.2, Glucose 161 H, Calcium 9.2, Total Bilirubin 0.90, AST 17, ALT 20, Alkaline Phosphatase 134 H, Troponin I < 0.015, Total Protein 8.4 H, Albumin 3.7, Globulin 4.7 H, Albumin/Globulin Ratio 0.8 L, Lipase 111 11/17/20 18:20: Urine Color Straw, Urine Clarity Clear, Urine pH 7.0, Ur S pecific [place] 1.005, Urine Protein 15 H, Urine Glucose (UA) Normal, Urine Ketones 5 H, Urine Occult Blood Negative, Urine Nitrite Negative, Urine Bi lirubin Negative, Urine Urobilinogen Normal, Ur Leukocyte Esterase Negative, Urine RBC 0 SEEN, Urine WBC 0 SEEN, Ur Squamous Epith Cells 0 SEEN, Urine Bacteria 0 SEEN, Urine Mucus 0 SEEN 11/18/20 06:35: WBC 12.2 H, RBC 4.66, Hgb 13.1, Hct 41.3, MCV 88.6, MCH 28.1, MCHC 31.7 L, RDW Std Deviation 45.8 H, RDW Coeff of Bettina 14.3, Plt Count 168, MPV 10.3, Immature Gran % (Auto) 0.300, Neut % (Auto) 83.3 H, Lymph % (Auto) 8.6 L, [place] % (Auto) 7.2, Eos % (Auto) 0.4, Baso % (Auto) 0.2, Absolute Neuts (auto) 10.1 H, Absolute Lymphs (auto) 1.05, Nucleated RBC % 0 11/18/20 06:35: Sodium 137, Potassium 4.6, Chloride 105, Carbon Dioxide 29.0, Anion Gap 3 L, BUN 22 H, Creatinine 1.09, Estim Creat Clear Calc 69.22, Est GFR (MDRD) Af Amer 86, Est GFR (MDRD) Non-Af 71, BUN/Creatinine Ratio 20.2 H, Glucose 98, Calcium 8.7, Total Bilirubin 0.90, AST 41 H, ALT 32, Alkaline Phosphatase 111, Total Protein 6.8, Albumin 3.1 L, Globulin 3.7, Albumin/Globulin Ratio 0.8 L Current Medications Hydralazine HCl (Hydralazine 20 Mg/Ml Vial) 5 mg IV Q4H PRN PRN PRN Reason: SBP > 160 Last Admin: 11/17/20 22:17 Dose: 5 mg Documented by: Sodium Chloride () 1,000 mls @ 75 mls/hr IV .[id number] [facility] Last Admin: 11/18/20 00:43 Dose: 75 mls/hr Documented by: Famotidine 20 mg/ Sodium (Chloride) 10 mls @ 300 mls/hr IV Q12 [facility] Last Infusion: 11/17/20 22:15 Dose: Infused Documented by: Morphine Sulfate (Morphine 4 Mg/Ml Syringe) 4 mg IV Q3H PRN PRN PRN Reason: Pain Score 6-10 Last Admin: 11/18/20 08:02 Dose: 4 mg Documented by: Ondansetron HCl (Ondansetron 4 Mg/2 Ml Vial) 4 mg IV Q8H PRN PRN PRN Reason: NAUSEA/VOMITING Last Admin: 11/18/20 07:50 Dose: 4 mg Documented by: Sodium Chloride (0.9% Saline Lock 10 Ml Syringe) 10 - 40 ml IV UD PRN PRN Reason: SALINE FLUSH Last Admin: 11/18/20 08:03 Dose: 10 ml Documented by: Assessment/Plan All Active Problems (Last Reviewed 11/18/20 @ 06:[address] Adolfo Doherty MD) SBO (small bowel obstruction) (Acute) Pancreatic mass (Acute) I have been consulted in conjunction with Dr. Nino. He will independently evaluate this patient tomorrow upon his return. Impression: Abdominal pain. 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 Plan: Discussed patient briefly with Dr. Nino. Plan to obtain an MRI today. Pending these results will determine future plan of care. Patient and his significant other have had the opportunity to ask and have questions answered. Patient verbally understands and agrees with the plan. Thank you for allowing us to participate in this patient's care. Office Visits / Consults: [id number] IP Consult L3
[2020-11-18] MEDS: Famotidine 200 MG/20 ML MDV 20 MG in 0.9% Normal Saline (Pres. free 8 ML 300 MG IV ×2 (10:54→21:33)
--- NOTE | 2020-11-18 11:30 | CASEMGMT ---
RN CM Face to Face with patient for initial transition planning/care coordination assessment. RN CM introduced self and role at [facility]. Patient lying in bed, alert and oriented. Patient willing to participate in assessment and is able to answer all questions appropriately. Care providers, pharmacy, and demographics verified. Patient wishes to discharge home, denies need for home health at this time. Patient states he has no further needs or concerns at this time. CM to follow for discharge planning needs that may arise. PCP: Adilson Specialists: none Preferred Pharmacy: [facility] Retail Insurance: [facility] Prescription Benefit: yes Living Will/HPOA: yes, Grace Mae HPOA LNOK: friend Grace Living Arrangements: Patient lives alone in a single story home with 2 steps and railing to enter the home. Patient states he is independent at home. Transportation: self/friend DME/HHC: Patient states he has cane and grab bars at home. Patient denies previous HHC or SNF Disposition Plan: Patient to discharge home with family support and follow-up plans in place. Roberta MEJIA, RN, CM
--- NOTE | 2020-11-18 12:21 | CASEMGMT ---
LW/Medical POA forms scanned into summary tab of Grace culp is listed as pt's medical POA. NATHALIE Smith
[2020-11-18] MEDS: hydrALAZINE 20 MG/ML Vial 5 MG IV ×2 (14:47→20:33)
[2020-11-19] VITALS (17 sets, daily range): BP systolic 167–209; BP diastolic 76–112; PULSE 80–95; RESP 16–18; TEMP 36.3–37.2; O2SAT 94–98
[2020-11-19] MEDS: Ondansetron 4 MG/2 ML Vial IV ×2 (01:47→18:23)
[2020-11-19] MEDS: hydrALAZINE 20 MG/ML Vial 5 MG IV ×3 (01:47→13:21)
[2020-11-19] MEDS: Morphine 4 MG/ML Syringe IV (01:48)
[2020-11-19] MEDS: 0.9% Saline Lock 10 ML Syringe IV ×8 (01:50→18:23)
[2020-11-19] MEDS: 0.9% Normal Saline 1,000 ML 75 ML IV ×2 (01:55→18:24)
--- NOTE | 2020-11-19 07:46 | PN.SURG_ITS ---
Patient Problems: Active and Suspected Problems (Last Reviewed 11/18/20 @ 06:[address] Adolfo Doherty MD) SBO (small bowel obstruction) (Acute) Pancreatic mass (Acute) Subjective: Patient complaining of a headache. States his abdominal pain is better. Thinks the headache is related to morphine. Objective: Diminished soft and nontender no rebound guarding or peritoneal signs identified - Physical Exam Vitals/I&O's: Vital Signs Temp Pulse Resp BP Pulse Ox 97.6 F L 87 16 167/85 H 94 11/19/20 01:48 11/19/20 01:48 11/19/20 01:48 11/19/20 01:48 11/19/20 01:48 Oxygen Delivery Method Room Air Weight: 231 lb 14.821 oz Body Mass Index (BMI) 31.4 Intake and Output for Last 24 Hours 11/17/20 11/18/20 11/19/20 23:59 23:59 23:59 Intake Total 1010 / 1010 1140 / 1140 855 / 855 Balance 1010 / 1010 1140 / 1140 855 / 855 Microbiology Past 72 Hours 11/17/20 17:18 Nasal Secretion SARS-CoV-2 Antigen (Rapid) - Final Laboratory Results 11/18/20 06:35: Sodium 137, Potassium 4.6, Chloride 105, Carbon Dioxide 29.0, Anion Gap 3 L, BUN 22 H, Creatinine 1.09, Estim Creat Clear Calc 69.22, Est GFR (MDRD) Af Amer 86, Est GFR (MDRD) Non-Af 71, BUN/Creatinine Ratio 20.2 H, Glucose 98, Calcium 8.7, Total Bilirubin 0.90, AST 41 H, ALT 32, Alkaline Phosphatase 111, Total Protein 6.8, Albumin 3.1 L, Globulin 3.7, Albumin/Globulin Ratio 0.8 L 11/19/20 07:10: WBC Pending, RBC Pending, Hgb Pending, Hct Pending, MCV Pending, MCH Pending, MCHC Pending, RDW Std Deviation Pending, RDW Coeff of Bettina Pending, Plt Count Pending, Neut % (Auto) Pending, Absolute Neuts (auto) Pending 11/19/20 07:10: Sodium Pending, Potassium Pending, Chloride Pending, Carbon Dioxide Pending, Anion Gap Pending, BUN Pending, Creatinine Pending, Est GFR (MDRD) Af Amer Pending, Est GFR (MDRD) Non-Af Pending, BUN/Creatinine Ratio Pending, Glucose Pending, Calcium Pending, Total Bilirubin Pending, AST Pending, ALT Pending, Alkaline Phosphatase Pending, Total Protein Pending, Albumin Pending Current Medications Hydralazine HCl (Hydralazine 20 Mg/Ml Vial) 5 mg IV Q4H PRN PRN PRN Reason: SBP > 160 Last Admin: 11/19/20 01:47 Dose: 5 mg Documented by: Sodium Chloride () 1,000 mls @ 75 mls/hr IV .[id number] [facility] Last Admin: 11/19/20 01:55 Dose: 75 mls/hr Documented by: Famotidine 20 mg/ Sodium (Chloride) 10 mls @ 300 mls/hr IV Q12 [facility] Last Infusion: 11/18/20 21:35 Dose: Infused Documented by: Morphine Sulfate (Morphine 4 Mg/Ml Syringe) 4 mg IV Q3H PRN PRN PRN Reason: Pain Score 6-10 Last Admin: 11/19/20 01:48 Dose: 4 mg Documented by: Ondansetron HCl (Ondansetron 4 Mg/2 Ml Vial) 4 mg IV Q8H PRN PRN PRN Reason: NAUSEA/VOMITING Last Admin: 11/19/20 01:47 Dose: 4 mg Documented by: Sodium Chloride (0.9% Saline Lock 10 Ml Syringe) 10 - 40 ml IV UD PRN PRN Reason: SALINE FLUSH Last Admin: 11/19/20 01:50 Dose: 10 ml Documented by: Medical Necessity - Tobacco Use Smoking Status: Former smoker Tobacco Use: Cigarettes Assessment/Plan All Active Problems (Last Reviewed 11/18/20 @ 06:[address] Adolfo Doherty MD) SBO (small bowel obstruction) (Acute) Pancreatic mass (Acute) Patient has had a conversation with Dr. Calderon and actually is going to be working on getting him transferred up to [place].
[2020-11-19 08:25] LABS: Absolute Lymphocyte Count 1.08 X10^3/uL (0.83-4.51); Absolute Neutrophil Count 10.2 X10^3/uL (2.0-7.7); Basophil# 0.04 X10^3/uL; Basophil% 0.3 % (0-1); Eosinophil# 0.06 X10^3/uL; Eosinophils% 0.5 % (0-5); Hemoglobin 13.3 g/dL (13.0-16.5); Lymphocyte # 1.08 X10^3/ul (0.83-4.51); Lymphocyte % 8.8 % (19-41); Mean Corp Hgb Conc 30.9 g/dL (32-36); Mean Corpuscular Hgb 28.3 pg (27.0-32.0); Mean Corpuscular Volume 91.5 fL (80-94); Mean Platelet Vol. 11.8 fl (6.2-12.0); Monocyte# 0.85 X10^3/uL; Monocyte% 6.9 % (0-10); NRBC Flagged by Analyzer 0 % (0-5); Platelet Count 173 K/mm3 (150-450); RBC Distribution Width CV 14.3 % (11.6-14.6); RBC Distribution Width SD 48.2 fl (35.1-43.9); White Blood Count 12.3 K/mm3 (4.4-11.0)
--- NOTE | 2020-11-19 08:26 | PN.SURG_ITS ---
Patient Problems: Active and Suspected Problems (Last Reviewed 11/18/20 @ 06:[address] Adolfo Doherty MD) SBO (small bowel obstruction) (Acute) Pancreatic mass (Acute) Subjective: Patient reports he is passing flatus. He still reports left-sided epigastric pain. He has not had any nausea or vomiting overnight. - Physical Exam Vitals/I&O's: Vital Signs Temp Pulse Resp BP Pulse Ox 97.4 F L 84 16 209/112 H 97 11/19/20 07:58 11/19/20 08:08 11/19/20 07:58 11/19/20 08:03 11/19/20 07:58 Oxygen Delivery Method Room Air Weight: 231 lb 14.821 oz Body Mass Index (BMI) 31.4 Intake and Output for Last 24 Hours 11/17/20 11/18/20 11/19/20 23:59 23:59 23:59 Intake Total 1010 / 1010 1140 / 1140 855 / 855 Balance 1010 / 1010 1140 / 1140 855 / 855 General: Alert, Oriented x3 Lungs: Normal air movement Cardiovascular: Regular rate, Regular Rhythm Abdomen: Soft, Non-Distended, Tender - Tender in the epigastric region Microbiology Past 72 Hours 11/17/20 17:18 Nasal Secretion SARS-CoV-2 Antigen (Rapid) - Final Laboratory Results 11/19/20 07:10: WBC Pending, RBC Pending, Hgb Pending, Hct Pending, MCV Pending, MCH Pending, MCHC Pending, RDW Std Deviation Pending, RDW Coeff of Bettina Pending, Plt Count Pending, Neut % (Auto) Pending, Absolute Neuts (auto) Pending 11/19/20 07:10: Sodium Pending, Potassium Pending, Chloride Pending, Carbon Dioxide Pending, Anion Gap Pending, BUN Pending, Creatinine Pending, Est GFR (MDRD) Af Amer Pending, Est GFR (MDRD) Non-Af Pending, BUN/Creatinine Ratio Pending, Glucose Pending, Calcium Pending, Total Bilirubin Pending, AST Pending, ALT Pending, Alkaline Phosphatase Pending, Total Protein Pending, Albumin Pending Current Medications Hydralazine HCl (Hydralazine 20 Mg/Ml Vial) 5 mg IV Q4H PRN PRN PRN Reason: SBP > 160 Last Admin: 11/19/20 08:08 Dose: 5 mg Documented by: Sodium Chloride () 1,000 mls @ 75 mls/hr IV .[id number] CRISTIANE Last Admin: 11/19/20 01:55 Dose: 75 mls/hr Documented by: Famotidine 20 mg/ Sodium (Chloride) 10 mls @ 300 mls/hr IV Q12 CRISTIANE Last Infusion: 11/18/20 21:35 Dose: Infused Documented by: Morphine Sulfate (Morphine 4 Mg/Ml Syringe) 4 mg IV Q3H PRN PRN PRN Reason: Pain Score 6-10 Last Admin: 11/19/20 01:48 Dose: 4 mg Documented by: Ondansetron HCl (Ondansetron 4 Mg/2 Ml Vial) 4 mg IV Q8H PRN PRN PRN Reason: NAUSEA/VOMITING Last Admin: 11/19/20 01:47 Dose: 4 mg Documented by: Sodium Chloride (0.9% Saline Lock 10 Ml Syringe) 10 - 40 ml IV UD PRN PRN Reason: SALINE FLUSH Last Admin: 11/19/20 08:08 Dose: 10 ml Documented by: Medical Necessity - Tobacco Use Smoking Status: Former smoker Tobacco Use: Cigarettes Assessment/Plan All Active Problems (Last Reviewed 11/18/20 @ 06:[address] Adolfo Doherty MD) SBO (small bowel obstruction) (Acute) Pancreatic mass (Acute) 70-year-old male with splenic mass and bile duct dilation 1. I reviewed the patient's imaging with him in detail. The patient's LFTs remain normal. He has a large distended gallbladder with possible hydrops. He also has dilation of his intrahepatic bile ducts with left larger than right. The MRI did not show any pancreatic masses but it did show concerning masses in the spleen concerning for metastatic disease. I discussed the case with him and ERCP. I did offer him ERCP versus transfer to tertiary facility. I explained that at a tertiary facility they would be able to perform ERCP with spyglass technology that we do not have at this hospital to do directed biopsies of the possible mass and internal evaluation of the bile duct whereas here I would only be able to perform a cholangiogram. I also discussed that at a tertiary care facility they would be able to place stents higher into the liver than I am normally comfortable with and address his splenic masses. I discussed his case with the biliary surgeon at [facility] and he agreed to accept the transfer. I discussed this with the patient and he is agreeable as well. I will have the patient transferred to [facility] for care of his biliary dilation as well as splenic masses. I will allow him to have clear liquids until transfer. Derik Nino MD Pager: [facility] [address] [place] [address] [address] [place] [address] Office:
[2020-11-19 08:45] LABS: ALB/GLOB Ratio 0.8 RATIO (0.9-2.4); AST(SGOT) 43 U/L (15-37); Alanine Aminotransfer ALT/SGPT 31 U/L (16-61); Albumin, Serum 3.1 g/dL (3.2-5.0); Alkaline Phosphatase 108 U/L (45-117); Anion Gap 6 (5-15); BUN 22 mg/dL (7-18); BUN/Creat Ratio 18.6 RATIO (10-20); Calcium,Total 8.8 mg/dL (8.5-10.1); Chloride 105 mmol/L (98-107); Creatinine, Serum 1.18 mg/dL (0.70-1.30); EST Glomerular Filtration Rate 65 mL/min (>60); Est Glom Filt Rate - Afr Amer 78 mL/min (>60); Estimated Creatinine Clearance 63.94 ml/min; Globulin 3.9 g/dL (2.2-4.2); Glucose 94 mg/dL (74-106); Potassium 4.9 mmol/L (3.5-5.1); Sodium Level 137 mmol/L (136-145)
--- NOTE | 2020-11-19 08:52 | DCINST_ITS ---
- Discharge Diagnoses Current Active Problems: Current Active and Chronic Problems (Last Reviewed 11/18/20 @ 06:[address] Adolfo Doherty MD) SBO (small bowel obstruction) (Acute) Pancreatic mass (Acute) You will use the following diet at home:: Clear liquid Your food should be the consistency of: Regular Allergies/Adverse Reactions: Allergies Penicillins [PCN] Allergy (Verified 11/17/20 15:47) Itching Medications to take at Discharge Topiramate [Topamax] 50 mg PO PRN PRN 04/18/15 Meloxicam [Mobic] 7.5 mg PO DAILY PRN 06/12/16 Primidone [Mysoline] 100 mg PO DAILY PRN 06/12/16 Cialis 25 mg PO 11/17/20 Primary Care Physician: Lonnie De Anda MD [Primary Care Provider] - Test Results: Test results from this visit will be discussed in further detail at your follow- up appointment, if applicable. Proposed Discharge Date: 11/19/20
--- NOTE | 2020-11-19 08:53 | DS.PCM_ITS ---
Discharge Date and Diagnosis - Problem List Patient Problems: Active and Suspected Problems (Last Reviewed 11/18/20 @ 06:[address] Adolfo Doherty MD) SBO (small bowel obstruction) (Acute) Pancreatic mass (Acute) Date of Admission: 11/17/20 Date of Discharge: 11/19/20 - Primary Discharge Diagnosis Acute Problems: Active Problems (Last Reviewed 11/18/20 @ 06:[address] Adolfo Doherty MD) SBO (small bowel obstruction) (Acute) Pancreatic mass (Acute) Hospital Course and Treatment Imaging Results: Clinical Impression(s) from Imaging Studies Abdomen/Pelvis CT 11/17/20 16:04 IMPRESSION: Marked gallbladder distention with intra and extra hepatic biliary dilatation. Dedicated pancreatic MRI or CT scan is recommended to rule out the possibility of pancreatic adenocarcinoma in the head of the pancreas. Multiple ill-defined lesions in the spleen, highly suspicious for metastases. Trace perisplenic ascites. Partial small bowel obstruction with the transition point in the right lower abdomen. The underlying etiology is likely adhesions. Distal colonic diverticulosis. No acute diverticulitis. Electronically Signed: Jonathan Grimes MD at 18:28 EDT Tel , Service support , Abdomen MRI 11/18/20 08:00 IMPRESSION: 1. Cholelithiasis with gallbladder hydrops. 2. Mild intrahepatic biliary ductal dilatation particularly in the left lobe. ERCP may be useful. 3. No MR evidence of pancreatic mass. 4. Multiple peripherally enhancing lesions the spleen worrisome for metastatic disease. 5. Diverticulum of second portion the duodenum. Electronically Signed: Vinnie Washington MD at 12:55 EDT Tel , Service support , Summary of Care Provided: Patient is a 70-year-old gentleman admitted with abdominal cramping imaging studies demonstrated small bowel obstruction. Patient was also found to have Marked gallbladder distention with intra and extra hepatic biliary dilatation in addition to Multiple ill-defined lesions in the spleen, highly suspicious for metastases. Admitted to regular nursing floor with consultation placed to general surgery 1. Partial small bowel obstruction ?Partial small bowel obstruction with the transition point in the right lower abdomen. The underlying etiology is likely adhesions. Admitted to regular nursing floor managed with bowel rest IV fluids pain meds as well as antinausea medications with consultation placed to general surgery - 2. Biliary dilatation ?CT of the abdomen obtained demonstrated Marked gallbladder distention with intra and extra hepatic biliary dilatation. Patient was also found to have Multiple ill-defined lesions in the spleen, highly suspicious for metastases. Pancreatic MRI ordered to rule out the possibility of pancreatic adenocarcinoma in the head of the pancreas. - Was seen in consultation by Dr. Nino. Patient was offered undergoing ERCP at the [facility] versus transfer to a tertiary care center evaluation. Patient opted to be transferred. Did arrange for patient to be transferred to [facility] [place] 3. Essential tremors ?On primidone and topiramate at home 4. DVT prophylaxis - On enoxaparin Patient Problems: Active and Suspected Problems (Last Reviewed 11/18/20 @ 06:[address] Adolfo Doherty MD) SBO (small bowel obstruction) (Acute) Pancreatic mass (Acute) Objective: GENERAL: cooperative HEENT: Atraumatic; EYES; Anicteric, Normal Conjunctiva NECK; supple, normal thyroid, RESPIRATORY: Diminished to auscultation CARDIOVASCULAR: Regular S1 S2, GI: soft, bowel sounds not appreciated : No Renal angle tenderness; EXTREMITIES: No edema, no clubbing, MUSCULOSKELETAL: no muscle waisting NEURO: Awake; no lateralizing signs. SKIN: No Rash PSYCH; Flat affect - Physical Exam Vitals/I&O's: Vital Signs Temp Pulse Resp BP Pulse Ox 97.4 F L 84 16 209/112 H 97 11/19/20 07:58 11/19/20 08:08 11/19/20 07:58 11/19/20 08:03 11/19/20 07:58 Oxygen Delivery Method Room Air Weight: 105.2 kg Body Mass Index (BMI) 31.4 Intake and Output for Last 24 Hours 11/17/20 11/18/20 11/19/20 23:59 23:59 23:59 Intake Total 1010 / 1010 1140 / 1140 855 / 855 Balance 1010 / 1010 1140 / 1140 855 / 855 Microbiology Past 72 Hours 11/17/20 17:18 Nasal Secretion SARS-CoV-2 Antigen (Rapid) - Final Laboratory Results 11/19/20 07:10: WBC 12.3 H, RBC 4.70, Hgb 13.3, Hct 43.0, MCV 91.5, MCH 28.3, MCHC 30.9 L, RDW Std Deviation 48.2 H, RDW Coeff of Bettina 14.3, Plt Count 173, MPV 11.8, Immature Gran % (Auto) 0.500, Neut % (Auto) 83.0 H, Lymph % (Auto) 8.8 L, [place] % (Auto) 6.9, Eos % (Auto) 0.5, Baso % (Auto) 0.3, Absolute Neuts (auto) 10.2 H, Absolute Lymphs (auto) 1.08, Nucleated RBC % 0 11/19/20 07:10: Sodium 137, Potassium 4.9, Chloride 105, Carbon Dioxide 26.0, Anion Gap 6, BUN 22 H, Creatinine 1.18, Estim Creat Clear Calc 63.94, Est GFR (MDRD) Af Amer 78, Est GFR (MDRD) Non-Af 65, BUN/Creatinine Ratio 18.6, Glucose 94, Calcium 8.8, Total Bilirubin 1.10 H, AST 43 H, ALT 31, Alkaline Phosphatase 108, Total Protein 7.0, Albumin 3.1 L, Globulin 3.9, Albumin/Globulin Ratio 0.8 L Current Medications Hydralazine HCl (Hydralazine 20 Mg/Ml Vial) 5 mg IV Q4H PRN PRN PRN Reason: SBP > 160 Last Admin: 11/19/20 08:08 Dose: 5 mg Documented by: Sodium Chloride () 1,000 mls @ 75 mls/hr IV .[id number] [facility] Last Admin: 11/19/20 01:55 Dose: 75 mls/hr Documented by: Famotidine 20 mg/ Sodium (Chloride) 10 mls @ 300 mls/hr IV Q12 [facility] Last Infusion: 11/18/20 21:35 Dose: Infused Documented by: Morphine Sulfate (Morphine 4 Mg/Ml Syringe) 4 mg IV Q3H PRN PRN PRN Reason: Pain Score 6-10 Last Admin: 11/19/20 01:48 Dose: 4 mg Documented by: Ondansetron HCl (Ondansetron 4 Mg/2 Ml Vial) 4 mg IV Q8H PRN PRN PRN Reason: NAUSEA/VOMITING Last Admin: 11/19/20 01:47 Dose: 4 mg Documented by: Sodium Chloride (0.9% Saline Lock 10 Ml Syringe) 10 - 40 ml IV UD PRN PRN Reason: SALINE FLUSH Last Admin: 11/19/20 08:08 Dose: 10 ml Documented by: Discharge Diet: Light diet - advance as tolerated Home Medications: Medications to take at Discharge Topiramate [Topamax] 50 mg PO PRN PRN 04/18/15 Meloxicam [Mobic] 7.5 mg PO DAILY PRN 06/12/16 Primidone [Mysoline] 100 mg PO DAILY PRN 06/12/16 Cialis 25 mg PO 11/17/20 Primary Care Physician: Lonnie De Anda MD [Primary Care Provider] - Disposition: Acute care Hospital Minutes spent on discharge:: 40 Patient Condition:: Stable Medical Necessity - Tobacco Use Smoking Status: Former smoker Tobacco Use: Cigarettes Meaningful Use Info Meaningful Use Diagnoses (Choose all that apply): None applicable Inpatient E&M: 20785 Disch Hosp
[2020-11-19] MEDS: HYDROmorphone 1 MG/ML Syringe IV ×3 (09:17→23:50)
--- NOTE | 2020-11-19 09:20 | CASEMGMT ---
Per [employer] Medicare website, the following tertiary facilities are in network: [facility], [place], [facility], [facility], [facility], [place], [facility] and .
[2020-11-19] MEDS: Famotidine 200 MG/20 ML MDV 20 MG in 0.9% Normal Saline (Pres. free 8 ML 300 MG IV ×2 (10:05→21:15)
[2020-11-19] MEDS: hydrALAZINE 20 MG/ML Vial 10 MG IV ×2 (15:01→22:18)
--- NOTE | 2020-11-19 16:39 | PN_ITS ---
Patient Problems: Active and Suspected Problems (Last Reviewed 11/18/20 @ 06:[address] Adolfo Doherty MD) SBO (small bowel obstruction) (Acute) Pancreatic mass (Acute) Reason for Visit: Abdominal pain Small bowel obstruction Mass Biliary dilatation Subjective: Patient is a 70-year-old gentleman admitted with abdominal cramping imaging studies demonstrated small bowel obstruction. Patient was also found to have Marked gallbladder distention with intra and extra hepatic biliary dilatation in addition to Multiple ill-defined lesions in the spleen, highly suspicious for metastases. Admitted to regular nursing floor with consultation placed to general surgery Was seen in consultation by Dr. Nino. Patient was offered undergoing ERCP at the [facility] versus transfer to a tertiary care center evaluation. Patient opted to be transferred. Did arrange for patient to be transferred to [facility] Objective: GENERAL: cooperative HEENT: Atraumatic; EYES; Anicteric, Normal Conjunctiva NECK; supple, normal thyroid, RESPIRATORY: Diminished to auscultation CARDIOVASCULAR: Regular S1 S2, GI: soft, bowel sounds not appreciated : No Renal angle tenderness; EXTREMITIES: No edema, no clubbing, MUSCULOSKELETAL: no muscle waisting NEURO: Awake; no lateralizing signs. SKIN: No Rash PSYCH; Flat affect Vitals/I&O's: Vital Signs Temp Pulse Resp BP Pulse Ox 98.8 F 82 16 178/76 H 98 11/19/20 16:21 11/19/20 16:21 11/19/20 16:21 11/19/20 16:21 11/19/20 16:21 Oxygen Delivery Method Room Air Weight: 105.2 kg Body Mass Index (BMI) 31.4 Intake and Output for Last 24 Hours 11/17/20 11/18/20 11/19/20 23:59 23:59 23:59 Intake Total 1010 / 1010 1140 / 1140 1225 / 1225 Balance 1010 / 1010 1140 / 1140 1225 / 1225 Microbiology Past 72 Hours 11/17/20 17:18 Nasal Secretion SARS-CoV-2 Antigen (Rapid) - Final Laboratory Results 11/19/20 07:10: WBC 12.3 H, RBC 4.70, Hgb 13.3, Hct 43.0, MCV 91.5, MCH 28.3, MCHC 30.9 L, RDW Std Deviation 48.2 H, RDW Coeff of Bettina 14.3, Plt Count 173, MPV 11.8, Immature Gran % (Auto) 0.500, Neut % (Auto) 83.0 H, Lymph % (Auto) 8.8 L, [place] % (Auto) 6.9, Eos % (Auto) 0.5, Baso % (Auto) 0.3, Absolute Neuts (auto) 10.2 H, Absolute Lymphs (auto) 1.08, Nucleated RBC % 0 11/19/20 07:10: Sodium 137, Potassium 4.9, Chloride 105, Carbon Dioxide 26.0, Anion Gap 6, BUN 22 H, Creatinine 1.18, Estim Creat Clear Calc 63.94, Est GFR (MDRD) Af Amer 78, Est GFR (MDRD) Non-Af 65, BUN/Creatinine Ratio 18.6, Glucose 94, Calcium 8.8, Total Bilirubin 1.10 H, AST 43 H, ALT 31, Alkaline Phosphatase 108, Total Protein 7.0, Albumin 3.1 L, Globulin 3.9, Albumin/Globulin Ratio 0.8 L Current Medications Hydralazine HCl (Hydralazine 20 Mg/Ml Vial) 10 mg IV Q4H PRN PRN PRN Reason: Hypertensive Emergency Last Admin: 11/19/20 15:01 Dose: 10 mg Documented by: Hydromorphone HCl (Hydromorphone 1 Mg/Ml Syringe) 1 mg IV Q4H PRN PRN PRN Reason: Pain Score 6-10 Last Admin: 11/19/20 15:04 Dose: 1 mg Documented by: Sodium Chloride () 1,000 mls @ 75 mls/hr IV .[id number] [facility] Last Admin: 11/19/20 01:55 Dose: 75 mls/hr Documented by: Famotidine 20 mg/ Sodium (Chloride) 10 mls @ 300 mls/hr IV Q12 CRISTIANE Last Infusion: 11/19/20 10:14 Dose: Infused Documented by: Ondansetron HCl (Ondansetron 4 Mg/2 Ml Vial) 4 mg IV Q8H PRN PRN PRN Reason: NAUSEA/VOMITING Last Admin: 11/19/20 01:47 Dose: 4 mg Documented by: Sodium Chloride (0.9% Saline Lock 10 Ml Syringe) 10 - 40 ml IV UD PRN PRN Reason: SALINE FLUSH Last Admin: 11/19/20 15:05 Dose: 10 ml Documented by: STROKE Vital Signs/Narrative: Vital Signs Temp Pulse Resp BP BP Pulse Ox 11/19/20 16:21 98.8 F 82 16 178/76 H 98 11/19/20 15:01 83 11/19/20 14:20 98.9 F 83 18 181/103 H 96 11/19/20 13:21 85 11/19/20 13:16 187/97 H 11/19/20 13:14 98.1 F 88 18 191/111 H 96 Medical Necessity - Tobacco Use Smoking Status: Former smoker Tobacco Use: Cigarettes Assessment/Plan All Active Problems (Last Reviewed 11/18/20 @ 06:[address] Adolfo Doherty MD) SBO (small bowel obstruction) (Acute) Pancreatic mass (Acute) Patient is a 70-year-old gentleman admitted with abdominal cramping imaging studies demonstrated small bowel obstruction. Patient was also found to have Marked gallbladder distention with intra and extra hepatic biliary dilatation in addition to Multiple ill-defined lesions in the spleen, highly suspicious for metastases. Admitted to regular nursing floor with consultation placed to general surgery 1. Partial small bowel obstruction ?Partial small bowel obstruction with the transition point in the right lower abdomen. The underlying etiology is likely adhesions. Admitted to regular nursing floor managed with bowel rest IV fluids pain meds as well as antinausea medications with consultation placed to general surgery 2. Biliary dilatation ?CT of the abdomen obtained demonstrated Marked gallbladder distention with intra and extra hepatic biliary dilatation. Patient was also found to have Multiple ill-defined lesions in the spleen, highly suspicious for metastases. Pancreatic MRI ordered to rule out the possibility of pancreatic adenocarcinoma in the head of the pancreas. - Was seen in consultation by Dr. Nino. Patient was offered undergoing ERCP at the [facility] versus transfer to a tertiary care center evaluation. Patient opted to be transferred. Did arrange for patient to be transferred to [facility] 3. Essential tremors ?On primidone and topiramate at home 4. DVT prophylaxis - On enoxaparin Inpatient E&M: 91414 [facility] Hosp L2
--- NOTE | 2020-11-19 18:20 | NURSING ---
discussed with Dr. Castaneda via phone after sent cortext. pt verbalized concern thinkings getting too much ivf as Bp elevated all day. nausea when up now. discussed home meds rate ivf, u/o including that pt states going decent amt but did not measure again. states continue ivf as ordered. order recieved for [facility] x1
[2020-11-19] MEDS: amLODIPine 10 MG Tablet PO (18:50)
== END 2020-11-20 00:50 | disposition short-term general hospital (02) | DRG 389 ==
LOC: ED 16:17 → MS3 19:57
PROVIDERS: Physician Assistant; Admitting Provider Hospitalist; Emergency Provider Emergency Medicine; PCP Family Medicine; Visit Provider Internal Medicine
DX: K56.51 Intestinal adhesions [bands], with partial obstruction (principal); K82.1 Hydrops of gallbladder; C78.89 Secondary malignant neoplasm of other digestive organs; C80.1 Malignant (primary) neoplasm, unspecified; K80.20 Calculus of gallbladder without cholecystitis without obstruction; K83.8 Other specified diseases of biliary tract; K57.10 Diverticulosis of small intestine without perforation or abscess without bleeding; K82.8 Other specified diseases of gallbladder; G25.0 Essential tremor; R03.0 Elevated blood-pressure reading, without diagnosis of hypertension; Z79.1 Long term (current) use of non-steroidal anti-inflammatories (NSAID); Z79.899 Other long term (current) drug therapy; Z87.891 Personal history of nicotine dependence
CPT/HCPCS: 74177; 74183; 80053; 81001; 83690; 84484; 85025; 87426; 93005; 99284; A9575; J7030; Q9967; A4216; J2405; J3490

== ENCOUNTER → 2020-11-28 11:57 | Outpatient (CLI) | payer MEDICARE, SELFPAY ==
[2020-11-17 20:36] VITALS: BMI 31.4
[2020-11-28 15:33] LABS: Anion Gap 4 (5-15); BUN 17 mg/dL (7-18); BUN/Creat Ratio 15.3 RATIO (10-20); Calcium,Total 8.5 mg/dL (8.5-10.1); Chloride 104 mmol/L (98-107); Cholesterol 150 mg/dL (200); Creatinine, Serum 1.11 mg/dL (0.70-1.30); EST Glomerular Filtration Rate 69 mL/min (>60); Est Glom Filt Rate - Afr Amer 84 mL/min (>60); Glucose 109 mg/dL (74-106); High Density Lipoprotein 56 mg/dL; PSA,Total - Annual Screen 1.39 ng/mL (0.00-4.00); Potassium 3.9 mmol/L (3.5-5.1); Sodium Level 136 mmol/L (136-145); Triglycerides 94 mg/dL; Very Low Density Lipoprotein 19 mg/dL (5-40)
== END ==
PROVIDERS: PCP Family Medicine; Referring Provider Family Medicine; Visit Provider Family Medicine
DX: I10 Essential (primary) hypertension (principal); Z12.5 Encounter for screening for malignant neoplasm of prostate
CPT/HCPCS: 36415; 80048; 80061; 84153; G0103

== ENCOUNTER → 2021-01-29 16:02 | Outpatient (CLI) | payer MEDICARE, SELFPAY ==
[2020-11-17 20:36] VITALS: BMI 31.4
== END ==
PROVIDERS: PCP Family Medicine; Visit Provider Family Medicine
DX: N52.9 Male erectile dysfunction, unspecified (principal)
CPT/HCPCS: 36415; 84403

== ENCOUNTER 2021-07-05 19:38 | Emergency (ER) | payer MEDICARE, SELFPAY ==
[2021-07-05 19:39] VITALS: BP 177/119; PULSE 97; RESP 16; TEMP 36.1; O2SAT 99; BMI 30.4
--- NOTE | 2021-07-05 20:02 | RAD_ITS ---
INDICATION: trauma EXAMINATION/TECHNIQUE: X-RAY - LEFT XR Tibia/Fibula 2 Views 5 VIEWS COMPARISON: 05/19/2017 left knee x-rays. FINDINGS: SOFT TISSUES: There does appear to be soft tissue thickening and stranding density of the subcutaneous fat anterior to the proximal tibial diaphysis suggesting possible contusion. No radiopaque foreign body. 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 No evidence of hardware complication. Visualized tibiotalar joint and hindfoot are within normal limits. Note of inferior calcaneal spurring. Old, healed fractures tibial and fibular diaphyses, proximal third with mild malalignment status post healing. RAD/Tibia & Fibula 2 Views IMPRESSION: Mild soft tissue swelling anterior proximal leg suggesting contusion. No foreign body or soft tissue gas. Totally arthroplasty. Old healed fractures proximal tibia and fibula diaphyses with mild malalignment. Electronically Signed: Simón Ulloa DO at 21:25 EST Tel , Service support ,
--- NOTE | 2021-07-05 20:45 | ED.VIS.LOWEX ---
HPI History of Present Illness Chief Complaint: Lower Extremity Injury Informant: patient Narrative Narrative: 71-year-old male was knocked to the ground stepped on by a horse. Notes injury to the left medial proximal leg. He denies any other significant injuries he has had prior partial knee replacement and tib-fib fractures [facility] Medical History (Updated 07/05/21 @ 20:[address] Adolfo Trujillo DO) Essential tremor Hypertension Pancreatic mass SBO (small bowel obstruction) Home Medications topiramate [Topamax] 50 mg PO PRN PRN 04/18/15 [History Last Taken 06/22/16 04:45] meloxicam 7.5 mg PO DAILY PRN 06/12/16 [History Last Taken Unknown] primidone 100 mg PO DAILY PRN 06/12/16 [History Last Taken 06/22/16 04:45] Cialis 25 mg PO 11/17/20 [History Last Taken Unknown] amlodipine 10 mg PO DAILY 11/19/20 [History Last Taken Unknown] oxycodone-acetaminophen 1 tab PO Q6H PRN PRN 3 Days #12 tablet 07/05/21 [Rx Last Taken Unknown] Allergy/AdvReac Type Severity Reaction Status Date / Time Penicillins [PCN] Allergy Itching Verified 11/17/20 15:47 Surgical History (Updated 07/05/21 @ 20:[address] Adolfo Trujillo DO) History of knee replacement Social History (Updated 07/05/21 @ 20:[address] Adolfo Trujillo DO) current gender identity: male Smoking Status: Former smoker ROS ROS ED Constitutional Constitutional ED: Denies chills or weight loss Eyes Eyes: Denies change in vision or diplopia ENT ENT ED: Denies ear pain, rhinorrhea or sore throat Cardiovascular Cardiovascular: Denies chest pain, orthopnea, palpitations or racing heartbeat Respiratory/Chest Respiratory/Chest: Denies cough, dyspnea or orthopnea Gastrointestinal Gastrointestinal: Denies abdominal pain, diarrhea, nausea or vomiting Genitourinary Genitourinary ED: Denies dysuria, hematuria or urinary frequency Musculoskeletal Musculoskeletal: Reports other Details: See history of present illness ; Denies arthralgias or myalgias Integumentary Denies abscess or rash Neurologic Neurologic: Denies headache(s) or weakness Psychiatric Psychiatric: Denies anxiety, depression, suicidal ideation or suicidal thoughts Endocrine Endocrinology: Denies polydipsia, polyphagia or polyuria Allergic/Immunologic Allergic/Immunologic ED: Denies mouth swelling, tongue swelling or urticaria EXAM Physical Exam Const Vital Signs: 07/05/21 19:39 Temperature 97.0 F L Temperature Source Temporal Pulse Rate 97 Respiratory Rate 16 Blood Pressure 177/119 H Blood Pressure Mean 138 Pulse Ox 99 Oxygen Delivery Method Room Air Positive well nourished and well developed General Appearance ED: well developed HEENT Reports normocephalic, head/scalp atraumatic and moist mucous membranes normocephalic and atraumatic Eyes PERRL and EOMs intact bilaterally Neck no lymphadenopathy, supple and no JVD Resp normal respiratory effort and clear to auscultation bilaterally Cardio regular rate, regular rhythm and no murmurs GI normal to inspection, nondistended, normoactive bowel sounds and non-tender Palpation: soft Back/Spine no CVA tenderness and normal ROM Extremity Extremity Narrative: The patient has soft tissue hematoma located over the proximal third of the medial left leg. Compartments still feel soft. Distally he is neurovascularly intact with strong pulses and normal sensation General Extremety ED: Negative for edema General Extremity: Negative for edema Neuro oriented x3 and CN's II-XII intact bilaterally Sensorium / Orientation: alert Motor Exam: strength 5/5 throughout Psych mental status grossly normal Mood & Affect: Negative for depressed or tearful Skin no rashes or lesions noted and no wounds MDM MDM MDM Narrative Medical decision making narrative: My interpretation of the plain films of the left tib-fib are prior healed tib-fib fracture, knee replacement, and soft tissue swelling. We talked about compartment syndrome which I do not feel he has at this time. Would recommend ice and pain medication. Return if worsening or concerns Discharge Plan Triage Chief Complaint: Lower Extremity Injury ED Provider: Adolfo Trujillo Dx/Rx/DC Orders Clinical Impression: Hematoma of left lower leg Instructions: ED Compartment Syndrome, At Risk for Prescriptions: New oxycodone-acetaminophen [oxycodone-acetaminophen] 1 TABLET tablet 1 tab PO Q6H PRN PRN (Reason: Pain) 3 Days Qty: 12 RF: 0 No Action topiramate [Topamax] 25 MG tablet 50 mg PO PRN PRN (Reason: tremors) RF: 0 primidone 50 MG tablet 100 mg PO DAILY PRN (Reason: tremors) RF: 0 meloxicam 7.5 MG tablet 7.5 mg PO DAILY PRN (Reason: pain) RF: 0 Cialis 25 mg PO RF: 0 amlodipine 10 MG tablet 10 mg PO DAILY RF: 0 Primary Care Provider: Lonnie De Anda Referrals: Lonnie De Anda MD [Primary Care Provider] - As Needed Disposition Disposition: Home, Self Care
[2021-07-05] MEDS: oxyCODONE 5 MG Tablet 10 MG PO (21:13)
== END 2021-07-05 22:04 | disposition home or self-care (01) ==
LOC: ED 20:55
PROVIDERS: Emergency Provider Emergency Medicine; PCP Family Medicine
DX: S80.12XA Contusion of left lower leg, initial encounter (principal); W55.19XA Other contact with horse, initial encounter; Z87.891 Personal history of nicotine dependence
CPT/HCPCS: 73590; 99283

== ENCOUNTER → 2022-02-25 | Outpatient (CLI) | payer MEDICARE, SELFPAY ==
[2022-02-25 12:44] LABS: ALB/GLOB Ratio 0.9 RATIO (0.9-2.4); AST(SGOT) 16 U/L (15-37); Alanine Aminotransfer ALT/SGPT 17 U/L (16-61); Albumin, Serum 3.4 g/dL (3.2-5.0); Alkaline Phosphatase 115 U/L (45-117); Anion Gap 5 (5-15); BUN 24 mg/dL (7-18); BUN/Creat Ratio 19.8 RATIO (10-20); Calcium,Total 8.3 mg/dL (8.5-10.1); Chloride 109 mmol/L (98-107); Cholesterol 132 mg/dL (200); Creatinine, Serum 1.21 mg/dL (0.70-1.30); EST Glomerular Filtration Rate 63 mL/min (>60); Est Glom Filt Rate - Afr Amer 76 mL/min (>60); Globulin 3.8 g/dL (2.2-4.2); Glucose 99 mg/dL (74-106); High Density Lipoprotein 63 mg/dL; PSA,Total - Annual Screen 1.77 ng/mL (0.00-4.00); Potassium 4.4 mmol/L (3.5-5.1); Protein, Total 7.2 g/dL (6.4-8.2); Sodium Level 139 mmol/L (136-145); Triglycerides 44 mg/dL; Very Low Density Lipoprotein 9 mg/dL (5-40)
== END | disposition home or self-care (01) ==
LOC: MFPLAB 09:44
PROVIDERS: PCP Family Medicine; Referring Provider Family Medicine; Visit Provider Family Medicine
DX: I10 Essential (primary) hypertension (principal); N40.0 Benign prostatic hyperplasia without lower urinary tract symptoms; Z12.5 Encounter for screening for malignant neoplasm of prostate
CPT/HCPCS: 36415; 80053; 80061; 84153; G0103

== ENCOUNTER → 2023-09-02 | Outpatient (CLI) | payer MEDICARE, SELFPAY ==
--- OUTSIDE RECORDS SUMMARY | 2023-09-02 11:40 | XMS RPT_ITS | CCD ---
Author Name Unknown Address Pending sale to [facility] [place] [id number] Organization [facility] Results Test Name Value Interpretation Reference Range Facil ity Procedures Date Procedure Procedure Detail Performing Clinician Start: 11-20-2020 Antibody screen Plan of care note 11-22-2020 Note Date & Type Note Facility 11-22-2020 Note HNO ID: [id number] Author: Hallie Zavala ([place]) Service: Gastroenterology Author Type: Physician Refresh Technician Type: Plan of Care Filed: 11/22/2020 11:44 AM Note Text: GI CONSULT PROGRESS NOTE SERVICE DATE: 11/22/2020 SERVICE TIME: 11:43 AM CONSULTING SERVICE: Gastroenterology D/w RN. Patient on regular diet but has been held NPO per nursing staff all day in preparation for EUS this afternoon. Appreciate this. Plan is for EUS with Dr. Huang today. SIGNATURE: Hallie Zavala PA-C PATIENT NAME: Norberto Gardner DATE: November 22, 2020 TIME: 11:43 AM PAGER/CONTACT #: see intranet [facility] Progress note 11-21-2020 Note Date & Type Note Facility 11-21-2020 Note HNO ID: [id number] Author: Emeka Carroll DO Service: General Surgery Author Type: Resident Type: Progress Notes Filed: 11/21/2020 12:23 PM Note Text: -- Attestation signed by Quentin Maurice at 11/23/2020 11:34 AM Attending Note I personally saw and examined the patient. I reviewed the resident's note. I agree with the resident's assessment and plan with the following revisions and/or additions: Seen and evaluated on 11/21/20. Splenic mass, need biopsy. Crossed for blood products. Needs EUS after. Signature: Quentin Maurice MD Date: 11/23/2020 Time: 11:32 AM -- Elective General Surgery Progress Note SERVICE DATE: 11/21/2020 Elective General Surgery Service Pager: For questions or concerns Mon-Fri 6a-5p please page [phone]. After 5pm and on Weekends and Holidays, please page [phone] if in ICU or [phone] if on RNF. SUBJECTIVE: Patient seen and examined this morning. 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 Minimal pain. States he is passing flatus but no recent bm. Emesis yesterday, denies any N/V currently. Tolerating diet DIET NPO Nausea No currently Emesis yes, yesterday Flatus Yes Bowel movement No Pain Controlled Yes Ambulating Yes OBJECTIVE: Vitals: Temp (24hrs), Av.9 ?C (98.4 ?F), Min:36.7 ?C (98.1 ?F), Max:37 ?C (98.6 ?F) BP 164/94 Pulse 85 Temp 36.7 ?C (98.1 ?F) (Oral) Resp 20 Ht 182.9 cm (6') Wt 103.6 kg (228 lb 8 oz) SpO2 96% BMI 30.99 kg/m? O2 Therapy: Room Air IANDO: Date 11/20/20 07 - 11/21/20 0659 11/21/20 07 - 11/22/20 0659 Shift 6892-4382 9639-7350 7868-4486 24 Hour Total 6147-0707 3199-3308 0570-8836 24 Hour Total INTAKE PO 360 360 PO 360 360 Shift Total 360 360 OUTPUT Urine Urine Not Saved. 2 x 2 x Emesis 150 150 Emesis (ml) 150 150 Shift Total 150 150 Weight (kg) 103.4 103.4 103.6 103.6 103.6 103.6 103.6 103.6 MEDICATIONS Current Facility-Administered Medications Medication Dose Route Frequency - polyethylene glycol 3350 17 g packet (MIRALAX, GLYCOLAX) 17 g ORAL DAILY - ondansetron 4 mg tab(s) (ZOFRAN) 4 mg ORAL q 6 H PRN Or - ondansetron (PF) 4 mg injection (ZOFRAN) 4 mg INTRAVENOUS q 6 H PRN - oxyCODONE IR 5-10 mg tab(s) (ROXICODONE) 5-10 mg ORAL q 4 H PRN - morphine 4 mg injection 4 mg INTRAVENOUS q 4 H PRN - acetaminophen 650 mg tab(s) (TYLENOL) 650 mg ORAL q 6 H - hydrALAZINE 20 mg tab(s) (APRESOLINE) 20 mg ORAL q 6 H PRN - acetaminophen 325 mg-caffeine 40 mg-butalbital 50 mg 1 tablet (FIORICET) 1 tablet ORAL q 6 H PRN - dextrose 5% in NaCl 0.9% with KCl 20 mEq/L iv infusion 125 mL/hr INTRAVENOUS CONTINUOUS - calcium carbonate 500 mg chewable tab(s) (TUMS) 500 mg ORAL BID - pantoprazole 40 mg injection (PROTONIX) 40 mg INTRAVENOUS DAILY (6 AM) Labs: Recent Labs 11/21/20 0541 11/20/20 0402 NA 139 134* K 3.7 3.4* CHLOR 103 97 CO2 29 27 BUN 16 15 CREAT 1.02 0.89 GLUC 95 129* ANION 7* 10 CA 8.2* 8.4* MG 1.9 1.7 ALB 3.4* 3.8* AST 23 27 ALT 26 30 ALKPHOS 103 118* TBILI 0.6 1.0 WBC 9.45 14.10* HB 12.7* 12.9* HCT 38.4* 38.7* PLT 181 173 INR -- 1.1 Physical Exam: GENERAL: resting comfortably, in no acute distress HEENT: normocephalic, atraumatic, EOMI NECK: trachea midline, no JVD LUNGS: Unlabored breathing, equal chest rise bilaterally, on room air CARDIAC: Regular rate, warm and well perfused distal extremities ABDOMEN: Soft, non-tender, minimally-distended, No rebound or guarding EXTREMITIES: LEE, No deformities, No edema SKIN: Skin color, texture, turgor normal, No rashes or lesions NEURO: AANDOx3, CN II-XII grossly intact PSYCH: normal mood and affect ASSESSMENT AND PLAN: Assessment: There are no active hospital problems to display for this patient. Assessment: 70 year old male who presents to [facility] as a direct admission for further workup and management for findings concerning for metastatic disease. Duodenal diverticulum Cholelithiasis extrahepatic/intrahepatic biliary dilation without jaundice Splenic lesions of uncertain etiology Hospital course: Awaiting procedures today Plan: - Diet: NPO/IVF today Plan for IR bx and Endoscopy - GI consulted Appreciate endoscopic evaluation of ampullary bile lesions - IR for spleen biopsy - follow up on pathology - monitor for bowel function - Medicine consult for HTN Appreciate assistance - Pain and nausea control - DVT Ppx: SCDs, LVX Hold lvx today for procedure - Encourage ambulation, IS - Discussed with attending Dr Maurice Dispo plannin. TBD SIGNATURE: Emeka Carroll DO PATIENT NAME: Norberto Gardner DATE: November 21, 2020 TIME: 12:19 PM Pager: see below Elective General Surgery Service Pager: For questions or concerns Mon-Fri (more content not included)... [facility] Plan of care note 11-21-2020 Note Date & Type Note Facility 11-21-2020 Note HNO ID: [id number] Author: Sherie Fung Service: General Surgery Author Type: Resident Type: Plan of Care Filed: 11/20/2020 11:05 PM Note Text: General Surgery Plan of Care Paged to bedside for elevated blood pressure to 200/120. Patient evaluated and complaining of epigastric pain. Patient states he had a large meal for dinner and that it feels like burning acid pain from the large meal. He is actively belching during the exam. Abdomen is distended and some pain with palpation in the epigastric region. Patient states that he is passing gas and feels better when he belches/passes gas. - EKG stat - Troponin - Medicine consult for hypertension - 1 time dose of lopressor Sherie Fung MD Orthopedic Surgery Resident 11/20/2020 11:05 PM [facility] Summary Purpose Family History No Family History Records Found Advance Directives No Advanced Directives Records Found Additional Source Comments (unrecognized sect ion and content) No Status Records Found INFORMATION SOURCE (unrecogn ized section and content) FOR RECORDS PERTAINING TO PATIENTS WHO ARE OR HAVE BEEN ENROLLED IN A CHEMICAL DEPENDENCY/SUBSTANCEABUSE PROGRAM, SOME INFORMATION MAY BE OMITTED. This clinical summary was aggregated from multiple sources. Caution should be exercised in using it in the provision of clinical care. This summary normalizes information from multiple sources, and as a consequence, information in this document may materially change the coding, format and clinical context of patient data. In addition, data may be omitted in some cases. CLINICAL DECISIONS SHOULD BE BASED ON THE PRIMARY CLINICAL RECORDS. [employer] provides no warranty or guarantee of the accuracy or completeness of information in this document.
[2023-09-02 12:10] LABS: Hematocrit 39.7 % (40-54); Hemoglobin 12.6 g/dL (13.0-16.5); Mean Corp Hgb Conc 31.7 g/dL (32-36); Mean Corpuscular Hgb 28.1 pg (27.0-32.0); Mean Corpuscular Volume 88.4 fL (80-94); Mean Platelet Vol. 10.6 fl (6.2-12.0); Platelet Count 179 K/mm3 (150-450); RBC Distribution Width CV 14.3 % (11.6-14.6); RBC Distribution Width SD 45.9 fl (35.1-43.9); RET-HE 33.2 pg (30-35); Red Blood Count 4.49 M/mm3 (4.6-6.2); Reticulocyte Count 1.08 % (0.5-1.5); White Blood Count 6.4 K/mm3 (4.4-11.0)
[2023-09-02 12:34] LABS: Vitamin B12 408 pg/mL (211-911)
[2023-09-02 12:40] LABS: ALB/GLOB Ratio 0.9 RATIO (0.9-2.4); AST(SGOT) 10 U/L (15-37); Alanine Aminotransfer ALT/SGPT 16 U/L (16-61); Albumin, Serum 3.6 g/dL (3.2-5.0); Alkaline Phosphatase 118 U/L (45-117); Anion Gap 2 (5-15); BUN 23 mg/dL (7-18); BUN/Creat Ratio 20.5 RATIO (10-20); Calcium,Total 8.5 mg/dL (8.5-10.1); Chloride 108 mmol/L (98-107); Cholesterol 168 mg/dL (200); Creatinine, Serum 1.12 mg/dL (0.70-1.30); EST Glomerular Filtration Rate 68 mL/min (>60); Est Glom Filt Rate - Afr Amer 83 mL/min (>60); Ferritin 107 ng/mL (26-388); Free T3 2.8 pg/mL (2.18-3.98); Globulin 3.9 g/dL (2.2-4.2); Glucose 100 mg/dL (74-106); High Density Lipoprotein 66 mg/dL; Iron 88 ug/dL (65-175); Iron Binding Capacity,Total 229 ug/dL (250-450); PSA,Total - Annual Screen 1.14 ng/mL (0.00-4.00); Protein, Total 7.5 g/dL (6.4-8.2); Sodium Level 135 mmol/L (136-145); T4 Free Direct 0.99 ng/dL (0.76-1.46); Thyroid Stim Hormone (TSH) 4.17 uIU/mL (0.358-3.74); Triglycerides 58 mg/dL; Very Low Density Lipoprotein 12 mg/dL (5-40)
== END | disposition home or self-care (01) ==
LOC: MFPLAB 09:23
PROVIDERS: PCP Family Medicine; Visit Provider Family Medicine
DX: I10 Essential (primary) hypertension (principal); N40.0 Benign prostatic hyperplasia without lower urinary tract symptoms; D64.9 Anemia, unspecified; R79.89 Other specified abnormal findings of blood chemistry; Z12.5 Encounter for screening for malignant neoplasm of prostate
CPT/HCPCS: 36415; 80053; 80061; 82607; 82728; 83540; 83550; 84153; 84439; 84443; 84481; 85027; 85045; G0103

== ENCOUNTER 2024-01-17 21:29 | Emergency (ER) | payer MEDICARE, SELFPAY ==
[2024-01-17 21:29] VITALS: BP 159/102; PULSE 78; RESP 16; TEMP 36.6; O2SAT 98; BMI 32.7
[2024-01-17 23:01] VITALS: BP 176/103
--- NOTE | 2024-01-17 23:18 | EDS_ITS ---
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 Patient has some stray kittens out in the barn. He was moving them so they would not be stepped on by the horse. The one cat bit and scratched his hands. He notes puncture wounds to the dorsum of the left index finger. He notes his tetanus is up-to-date. Previously reported allergy to penicillin include lightheadedness not itching. Tetanus Immunization: <5 years [facility] Medical History (Updated 01/17/24 @ 23:[address] Adolfo Trujillo DO) Hypertension Essential tremor SBO (small bowel obstruction) Home Medications ?Medication ?Instructions ?Recorded ?Last Taken ?Type topiramate 25 mg tablet (Topamax) 50 mg PO PRN PRN tremors 04/18/15 06/22/16 04:45 History meloxicam 7.5 mg tablet 7.5 mg PO DAILY PRN pain 06/12/16 Unknown History primidone 50 mg tablet 100 mg PO DAILY PRN tremors 06/12/16 06/22/16 04:45 History Cialis 25 mg PO urinary 11/17/20 Unknown History amlodipine 10 mg tablet 10 mg PO DAILY blood pressure 11/19/20 Unknown History oxycodone-acetaminophen 5 mg-325 1 tab PO Q6H PRN PRN Pain 3 days 07/05/21 Unknown Rx mg tablet #12 TABLETS amoxicillin 875 mg-potassium 875 mg PO Q12H #14 TABLETS 01/17/24 Unknown Rx clavulanate 125 mg tablet Allergy/AdvReac Type Severity Reaction Status Date / Time Penicillins (PCN) Allergy Itching Verified 01/17/24 21:31 Surgical History History of knee replacement Social History Smoking Status: Former smoker ROS ROS ED Constitutional Constitutional ED: Denies chills, fever(s) or weight loss Eyes Eyes: Denies change in vision or diplopia ENT ENT ED: Denies ear pain, rhinorrhea or sore throat Cardiovascular Cardiovascular: Denies chest pain, orthopnea, palpitations or racing heartbeat Respiratory/Chest Respiratory/Chest: Denies cough, dyspnea or orthopnea Gastrointestinal Gastrointestinal: Denies abdominal pain, diarrhea, nausea or vomiting Genitourinary Genitourinary ED: Denies dysuria, hematuria or urinary frequency Musculoskeletal Musculoskeletal: Denies arthralgias or myalgias Integumentary Reports Abrasions and other Details: See history of present illness ; Denies abscess or rash Neurologic Neurologic: Denies headache(s) or weakness Psychiatric Psychiatric: Denies anxiety, depression, suicidal ideation or suicidal thoughts Endocrine Endocrinology: Denies polydipsia, polyphagia or polyuria Allergic/Immunologic Allergic/Immunologic ED: Denies mouth swelling, tongue swelling or urticaria EXAM Physical Exam Const Vital Signs: 01/17/24 21:29 01/17/24 23:01 Temperature 97.8 F Temperature Source Temporal Pulse Rate 78 Respiratory Rate 16 Blood Pressure 159/102 H 176/103 H Blood Pressure Mean 121 127 Pulse Ox 98 Oxygen Delivery Method Room Air Positive well nourished and well developed General Appearance ED: well developed HEENT Reports normocephalic, head/scalp atraumatic and moist mucous membranes Eyes PERRL and EOMs intact bilaterally Neck no lymphadenopathy, supple and no JVD Resp normal respiratory effort and clear to auscultation bilaterally Cardio regular rate, regular rhythm and no murmurs GI normal to inspection, nondistended, normoactive bowel sounds and non-tender Palpation: soft Back/Spine no CVA tenderness and normal ROM Extremity Extremity Narrative: There are 2 puncture wounds located over the dorsum of the left index finger. There is no significant swelling erythema or drainage from the wounds. No palpable foreign bodies. General Extremety ED: Negative for edema General Extremity: Negative for edema Neuro oriented x3 and CN's II-XII intact bilaterally Sensorium / Orientation: alert Motor Exam: strength 5/5 throughout Psych mental status grossly normal Mood & Affect: Negative for depressed or tearful Skin no rashes or lesions noted and no wounds MDM MDM MDM Narrative Medical decision making narrative: Differential diagnosis includes abrasions bites cellulitis abscess foreign bodies Patient will be started on Augmentin. He will contact me directly if the Augmentin is showing any potential allergic symptoms. Patient return if any worsening or concerns animals can be watched. History & Record Review Discussion w/independent historian: Patient Discharge Plan Triage Chief Complaint: Bite ED Provider: Adolfo Trujillo Dx/Rx/DC Orders Clinical Impression: Cat bite, Abrasion hand Instructions: ED Cat Bite Prescriptions: New amoxicillin-pot clavulanate 875-125 mg tablet 875 mg PO Q12H Qty: 14 0RF No Action topiramate [Topamax] 25 MG tablet 50 mg PO PRN PRN (Reason: tremors) Patient Comments: TREMORS primidone 50 MG tablet 100 mg PO DAILY PRN (Reason: tremors) Patient Comments: TAKES IN AM meloxicam 7.5 MG tablet 7.5 mg PO DAILY PRN (Reason: pain) Cialis 25 mg PO amlodipine 10 MG tablet 10 mg PO DAILY oxycodone-acetaminophen [oxycodone-acetaminophen] 1 TABLET tablet 1 tab PO Q6H PRN PRN (Reason: Pain) 3 Days Qty: 12 0RF Primary Care Provider: Pedro De Anda Referrals: Pedro De Anda MD [Primary Care Provider] - As Needed Print Language: Cambodian Disposition Disposition: Home, Self Care Discharge Date/Time: 01/17/24 23:28
[2024-01-17] MEDS: Amox/Clavulanate 875 MG Tablet PO (23:22)
[2024-01-17 23:27] VITALS: BP 173/98; PULSE 72; RESP 18; TEMP 36.6; O2SAT 98
== END 2024-01-17 23:28 | disposition home or self-care (01) ==
PROVIDERS: Emergency Provider Emergency Medicine; PCP Family Medicine; Visit Provider Emergency Medicine
DX: S61.251A Open bite of left index finger without damage to nail, initial encounter (principal); S60.512A Abrasion of left hand, initial encounter; Z87.891 Personal history of nicotine dependence; W55.01XA Bitten by cat, initial encounter
CPT/HCPCS: 99282